=== PATIENT | male | born 1960 | race American Indian/Alaskan Native ===

== ENCOUNTER 2016-12-13 10:03 | Emergency (ER) | payer SELFPAY ==
[2016-12-13 10:08] VITALS: BP 138/89
--- NOTE | 2016-12-13 11:43 | Cat Scan Report ---
CT scan of abdomen and pelvis without IV contrast: Findings: Normal lung bases. No pleural or pericardial effusion. Normal liver spleen pancreas and gallbladder. Normal adrenals. Circumscribed hypodensity right kidney upper pole measuring 1.4 cm suggestive of cysts. No calculi. No evidence of hydronephrosis. Thick walled urinary bladder probably due to inadequate distention. Cannot exclude cystitis. No free intraperitoneal fluid or air. No evidence of adenopathy. Normal aorta. Normal appendix. No evidence of diverticulitis. Stool in colon. No bowel distention. Small umbilical hernia containing fat. Impression: No acute abdominal findings. Cysts right kidney. 2 small umbilical hernia containing fat.
--- NOTE | 2016-12-13 12:13 | Emergency Department Report ---
ED Back Pain/Injury HPI - General Chief Complaint: Back Pain/Injury Stated Complaint: BACK PAIN Time Seen by Provider: 12/13/16 10:46 Source: patient Limitations: No Limitations - History of Present Illness Initial Comments: She complaining of intermittent low back pain that sometimes radiates towards the front/groin. Patient denies nausea vomiting, abdominal pain, testicular pain, dysuria, fever or chills. She has a long history of chronic recurrent back pain. Denies any new injury MD Complaint: back pain -: Gradual - Related Data Home Medications Medication Instructions Recorded Confirmed Last Taken Ibuprofen [Motrin] 800 mg PO Q8HR PRN 08/06/15 08/06/15 Unknown Naproxen [Naprosyn TAB] 500 mg PO BID 08/06/15 08/06/15 Unknown traMADol [Ultram 50 MG tab] 50 mg PO Q6HR PRN 08/06/15 08/06/15 Unknown Previous Rx's Medication Instructions Recorded Last Taken Type Sulfamethoxazole/Trimethoprim 1 each PO BID #14 tablet 08/06/15 Unknown Rx [Bactrim DS TAB] traMADol [Ultram 50 MG tab] 50 mg PO Q4HR PRN #20 tablet 08/06/15 Unknown Rx Methocarbamol [Robaxin TAB] 750 mg PO Q8H PRN #20 tablet 12/13/16 Unknown Rx Allergies Allergy/AdvReac Type Severity Reaction Status Date / Time No Known Allergies Allergy Verified 09/20/15 17:40 ED Review of Systems ROS: Stated complaint: BACK PAIN Other details as noted in HPI Constitutional: denies: chills, fever Eyes: denies: eye pain, eye discharge, vision change ENT: denies: ear pain, throat pain Respiratory: denies: cough, shortness of breath, wheezing Cardiovascular: denies: chest pain, palpitations Endocrine: no symptoms reported Gastrointestinal: denies: abdominal pain, nausea, vomiting, diarrhea Genitourinary: denies: urgency, dysuria, testicular pain, testicular mass Musculoskeletal: back pain. denies: joint swelling, arthralgia Skin: denies: rash, lesions Neurological: denies: headache, weakness, paresthesias Psychiatric: denies: anxiety, depression Hematological/Lymphatic: denies: easy bleeding, easy bruising ED Past Medical Hx - Past Medical History Previous Medical History?: Yes Hx Hypertension: Yes Additional medical history: CHRONIC LEFT SHOULDER PAIN. CHRONIC BACK PAIN - Surgical History Past Surgical History?: Yes Additional Surgical History: left shoulder repair - Social History Smoking Status: Current Every Day Smoker Substance Use Type: Alcohol, Non Opiate Pain, Prescribed - Medications Home Medications: Home Medications Medication Instructions Recorded Confirmed Last Taken Type Ibuprofen [Motrin] 800 mg PO Q8HR PRN 08/06/15 08/06/15 Unknown History Naproxen [Naprosyn TAB] 500 mg PO BID 08/06/15 08/06/15 Unknown History Sulfamethoxazole/Trimethoprim 1 each PO BID #14 tablet 08/06/15 Unknown Rx [Bactrim DS TAB] traMADol [Ultram 50 MG tab] 50 mg PO Q4HR PRN #20 tablet 08/06/15 Unknown Rx traMADol [Ultram 50 MG tab] 50 mg PO Q6HR PRN 08/06/15 08/06/15 Unknown History Methocarbamol [Robaxin TAB] 750 mg PO Q8H PRN #20 tablet 12/13/16 Unknown Rx ED Physical Exam - General Limitations: No Limitations General appearance: alert, in no apparent distress - Head Head exam: Present: atraumatic, normocephalic - Eye Eye exam: Present: normal appearance - ENT ENT exam: Present: mucous membranes moist - Neck Neck exam: Present: normal inspection - Respiratory Respiratory exam: Present: normal lung sounds bilaterally. Absent: respiratory distress - Cardiovascular Cardiovascular Exam: Present: regular rate, normal rhythm. Absent: systolic murmur, diastolic murmur, rubs, gallop - GI/Abdominal GI/Abdominal exam: Present: soft, normal bowel sounds. Absent: distended, tenderness, guarding, rebound, rigid - Rectal Rectal exam: Present: deferred - Extremities Exam Extremities exam: Present: normal inspection - Back Exam Back exam: Present: normal inspection, full ROM, paraspinal tenderness, other ( abdomen right positive straight-leg raise at 15). Absent: CVA tenderness (R), CVA tenderness (L) - Neurological Exam Neurological exam: Present: alert, oriented X3, normal gait - Psychiatric Psychiatric exam: Present: normal affect, normal mood - Skin Skin exam: Present: warm, dry, intact, normal color. Absent: rash ED Course Vital Signs 12/13/16 10:06 Temperature 98.1 F Pulse Rate 80 Respiratory 20 Rate Blood Pressure 138/89 O2 Sat by Pulse 99 Oximetry Critical care attestation.: If time is entered above; I have spent that time in minutes in the direct care of this critically ill patient, excluding procedure time. ED Disposition Clinical Impression: Low back pain Disposition: DISCHARGED TO HOME OR SELFCARE Is pt being admited?: No Condition: Stable Instructions: Low Back Strain (ED) Prescriptions: Methocarbamol [Robaxin TAB] 750 mg PO Q8H PRN #20 tablet PRN Reason: Pain Referrals: PRIMARY CARE, [Primary Care Provider] - 3-5 Days
[2016-12-13 12:41] LABS: Bilirubin,Urine NEG (Negative); Blood,Urine NEG (Negative); Ketones,Urine NEG (Negative); Leukocyte Esterase,Urine NEG (Negative); Nitrite,Urine NEG (Negative); Protein,Urine <15 mg/dL mg/dL (Negative); Urobilinogen,Urine < 2.0 mg/dL (<2.0)
== END 2016-12-13 12:25 | disposition home or self-care (01) ==
LOC: ED 10:03
DX: M54.5 Low back pain (principal); I10 Essential (primary) hypertension; G89.29 Other chronic pain; F17.200 Nicotine dependence, unspecified, uncomplicated
CPT/HCPCS: 74176; 81001

== ENCOUNTER 2017-03-28 23:01 | Emergency (ER) | payer OTHER ==
[2017-03-29] MEDS ORDERED: NORCO 7.5/325 PO ONE (01:42)
[2017-03-29] MEDS ORDERED: MOTRIN PO ONE (01:42)
[2017-03-29] MEDS ORDERED: FLEXERIL PO ONE (01:42)
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
[2017-03-29 03:14] VITALS: BP 160/91
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
== END 2017-03-29 03:14 | disposition home or self-care (01) ==
LOC: ED 23:01
DX: M54.5 Low back pain (principal); I10 Essential (primary) hypertension; F17.200 Nicotine dependence, unspecified, uncomplicated; G89.29 Other chronic pain; V89.2XXA Person injured in unspecified motor-vehicle accident, traffic, initial encounter; Y92.488 Other paved roadways as the place of occurrence of the external cause; Y93.89 Activity, other specified; Y99.8 Other external cause status
CPT/HCPCS: 72100; 99283

== ENCOUNTER 2017-07-16 00:50 | Inpatient (IN) | payer OTHER ==
[2017-07-16 03:36] LABS: Basophils # (Auto) 0.1 K/mm3 (0.0-0.1); Basophils % (Auto) 0.5 % (0.0-1.8); Eosinophils # (Auto) 0.1 K/mm3 (0.0-0.4); Eosinophils % (Auto) 0.8 % (0.0-4.3); Hematocrit 45.6 % (35.5-45.6); Hemoglobin 15.8 gm/dl (11.8-15.2); Lymphocytes # (Auto) 3.1 K/mm3 (1.2-5.4); Mean Corpuscular HGB Conc 35 % (32-34); Mean Corpuscular Hemoglobin 32 pg (28-32); Mean Corpuscular Volume 91 fl (84-94); Monocytes # (Auto) 1.3 K/mm3 (0.0-0.8); Monocytes % (Auto) 13.3 % (0.0-7.3); Platelet Count 311 K/mm3 (140-440); Red Cell Distribution Width 13.2 % (13.2-15.2)
[2017-07-16 03:47] LABS: INR 0.96 (0.87-1.13)
[2017-07-16 03:48] LABS: Partial Thromboplastin Time 27.8 Sec. (24.2-36.6); Thrombin Time 16.3 Sec. (15.1-19.6)
[2017-07-16 04:06] LABS: BUN/Creatinine Ratio 25; Blood Urea Nitrogen 20 mg/dL (9-20); Calcium 9.3 mg/dL (8.4-10.2); Hemolysis Index 41
--- NOTE | 2017-07-16 06:27 | Cat Scan Report ---
FINAL REPORT EXAM: CT HEAD/BRAIN WO CON HISTORY: DIZZINESS TECHNIQUE: CT imaging acquired through the head without intravenous contrast. Transaxial reformations are provided. PRIORS: None. FINDINGS: The ventricles, cisterns and sulci are within normal limits. No intraparenchymal or extra-axial mass, hemorrhage, or mass effect. Schultz and white-matter differentiation is within normal limits for patient age. Normal spherical shape of the globes. No significant abnormality involving the imaged portions of the paranasal sinuses and mastoid air cells. No skull or facial fracture visualized. IMPRESSION: No acute intracranial abnormality.
[2017-07-16] MEDS ORDERED: ANTIVERT PO ONE (12:23)
--- NOTE | 2017-07-16 12:28 | Emergency Department Report ---
HPI - General Chief Complaint: Dizziness Time Seen by Provider: 07/16/17 12:11 - HPI HPI: Room 3 The patient is a 56-year-old male presents with the chief complaint of dizziness. The patient states his symptoms began one week ago when he felt as though his left ear was "stopped up." The patient is occasional cough and rhinorrhea. The patient states lately he feels as though he is still moving whenever he stands up. 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 CHRONIC BACK PAIN - Surgical History Past Surgical History?: Yes Additional Surgical History: left shoulder repair - Family History Family history: no significant - Social History Smoking Status: Former Smoker (none 1 week) Substance Use Type: None (denies illicit drug use), Alcohol (occasional) - Medications Home Medications: Home Medications Medication Instructions Recorded Confirmed Last Taken Type Ibuprofen [Motrin] 800 mg PO Q8HR PRN 08/06/15 08/06/15 Unknown History Naproxen [Naprosyn TAB] 500 mg PO BID 08/06/15 08/06/15 Unknown History Sulfamethoxazole/Trimethoprim 1 each PO BID #14 tablet 08/06/15 Unknown Rx [Bactrim DS TAB] traMADol [Ultram 50 MG tab] 50 mg PO Q4HR PRN #20 tablet 08/06/15 Unknown Rx traMADol [Ultram 50 MG tab] 50 mg PO Q6HR PRN 08/06/15 08/06/15 Unknown History Methocarbamol [Robaxin TAB] 750 mg PO Q8H PRN #20 tablet 12/13/16 Unknown Rx traMADol [Ultram 50 MG tab] 50 mg PO Q4HR PRN #20 tablet 12/13/16 Unknown Rx Meloxicam [Mobic] 7.5 mg PO QDAY #5 tablet 03/29/17 Unknown Rx methOCARBAMOL [Robaxin TAB] 500 mg PO TID #15 tab 03/29/17 Unknown Rx Meclizine [Antivert] 25 mg PO TID PRN #20 tablet 07/16/17 Unknown Rx ED Review of Systems ROS: Stated complaint: DIZZINESS Other details as noted in HPI Constitutional: denies: fever ENT: hearing loss Respiratory: cough Neurological: vertigo Physical Exam - Physical Exam Vital Signs: Vital Signs 07/16/17 07/16/17 01:34 07:56 Temperature 97.5 F L 98.8 F Pulse Rate 125 H 111 H Respiratory 17 16 Rate Blood Pressure 111/82 Blood Pressure 138/84 [Right] O2 Sat by Pulse 99 95 Oximetry Physical Exam: GENERAL: The patient is well-developed well-nourished male lying on stretcher not appearing to be in acute distress. [] HEENT: Normocephalic. Atraumatic. Extraocular motions are intact. Patient has moist mucous membranes. No nystagmus NECK: Supple. No meningitic signs are noted. Trachea midline CHEST/LUNGS: Clear to auscultation. There is no respiratory distress noted. HEART/CARDIOVASCULAR: Regular. There is no tachycardia. There is no gallop rub or murmur. ABDOMEN: Abdomen is soft, nontender. Patient has normal bowel sounds. There is no abdominal distention. SKIN: There is no rash. There is no edema. There is no diaphoresis. NEURO: The patient is awake, alert, and oriented. The patient is cooperative. The patient has no focal neurologic deficits. The patient has normal speech and gait. Cranial nerves II through XII grossly intact, no drift. Normal sensation throughout. No dysmetria noted with [id number] bilaterally. MUSCULOSKELETAL:There is no evidence of acute injury. ED Course Vital Signs 07/16/17 07/16/17 01:34 07:56 Temperature 97.5 F L 98.8 F Pulse Rate 125 H 111 H Respiratory 17 16 Rate Blood Pressure 111/82 Blood Pressure 138/84 [Right] O2 Sat by Pulse 99 95 Oximetry ED Medical Decision Making - Lab Data Result diagrams: 07/16/17 02:06 07/16/17 02:06 Laboratory Tests 07/16/17 07/16/17 07/16/17 02:06 02:06 02:06 WBC 9.4 RBC 5.00 Hgb 15.8 H Hct 45.6 MCV 91 MCH 32 MCHC 35 H RDW 13.2 Plt Count 311 Lymph % (Auto) 33.0 [place] % (Auto) 13.3 H Eos % (Auto) 0.8 Baso % (Auto) 0.5 Lymph # 3.1 [place] # 1.3 H Eos # 0.1 Baso # 0.1 Seg Neutrophils % 52.4 Seg Neutrophils # 4.9 PT 13.3 INR 0.96 APTT 27.8 Thrombin Time 16.3 Sodium 140 Potassium 4.1 Chloride 97.1 L Carbon Dioxide 22 Anion Gap 25 BUN 20 Creatinine 0.8 Estimated GFR > 60 BUN/Creatinine Ratio 25 Glucose 112 H Calcium 9.3 Troponin T < 0.010 - EKG Data -: EKG Interpreted by Me EKG shows normal: sinus rhythm Rate: normal - EKG Data When compared to previous EKG there are: no significant change Interpretation: unchanged when compared t (08/06/2015) - Radiology Data Radiology results: report reviewed (CT head), image reviewed (CT head) FINAL REPORT EXAM: CT HEAD/BRAIN WO CON HISTORY: DIZZINESS TECHNIQUE: CT imaging acquired through the head without intravenous contrast. Transaxial reformations are provided. PRIORS: None. FINDINGS: The ventricles, cisterns and sulci are within normal limits. No intraparenchymal or extra-axial mass, hemorrhage, or mass effect. Schultz and white-matter differentiation is within normal limits for patient age. Normal spherical shape of the globes. No significant abnormality involving the imaged portions of the paranasal sinuses and mastoid air cells. No skull or facial fracture visualized. IMPRESSION: No acute intracranial abnormality. Transcribed By: MB Dictated By: LINA ABDI MD Electronically Authenticated By: LINA ABDI MD Signed Date/Time: 07/16/17223 DD/ 3 TD/TT: 07/16/17223 - Medical Decision Making Patient persistently tachycardic and dizzy despite 2 L of IV fluids. Will admit the patient to the hospital for further management - Differential Diagnosis vertigo, symptomatic anemia, electrolyte imbalance, dehydration Critical care attestation.: If time is entered above; I have spent that time in minutes in the direct care of this critically ill patient, excluding procedure time. ED Disposition Clinical Impression: Dizziness, Orthostasis Disposition: OP ADMIT IP TO THIS HOSP Is pt being admited?: Yes Does the pt Need Aspirin: Yes Condition: Fair Instructions: Vertigo (ED) Additional Instructions: Return to the emergency department immediately should you develop worsening symptoms, fever, inability to tolerate food or liquid or any other concerns. Prescriptions: Meclizine [Antivert] 25 mg PO TID PRN #20 tablet PRN Reason: Vertigo Referrals: DURAN HORNER MD [Staff Physician] - 3-5 Days LINA BURNS MD [Primary Care Provider] - 3-5 Days (Dr. Prasad is a primary physician. Please follow-up with him to be established as a patient) JENNIFER IVERSON MD [Staff Physician] - 3-5 Days (Dr. Otilio Henley is an ear nose and throat doctor (orthodontic laboratory technician). Please follow up with her for further evaluation) Time of Disposition: 15:42 (hospitalist paged (Dr Bonner))
[2017-07-16] MEDS ORDERED: NACL 0.9% 1000 ML 1,000 ML IV ONE ×3 (12:53→23:02)
[2017-07-16] MEDS ORDERED: ASPIRIN PO ONE (15:43)
--- NOTE | 2017-07-16 21:18 | Event Note ---
Date: 07/16/17 See dictated H/p in reports
[2017-07-16] MEDS ORDERED: D5NS 1,000 ML IV SCH (22:00)
--- NOTE | 2017-07-16 22:55 | History and Physical Report ---
History of Present Illness Date of examination: 07/16/17 Date of admission: Dizziness History of present illness: The patient is a 56-year-old male presents with the chief complaint of dizziness. The patient states his symptoms began one week ago when he felt as though his left ear was "stopped up." The patient is occasional cough and rhinorrhea. The patient states lately he feels as though he is still moving whenever he stands up. 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 CHRONIC BACK PAIN) Past Surgical History: Other (left shoulder repair) Social history: smoking, full code. denies: alcohol abuse, IV drug use Family history: no significant family history Medications and Allergies Allergies Allergy/AdvReac Type Severity Reaction Status Date / Time No Known Allergies Allergy Verified 09/20/15 17:40 Home Medications Medication Instructions Recorded Confirmed Last Taken Type HYDROcodone/APAP 5-325 [[place] 1 each PO BID PRN 07/16/17 07/16/17 07/14/17 History 5/325] Active Meds: Active Medications Acetaminophen/Hydrocodone Bitart ([place] 5/325) 1 each PO BID PRN PRN Reason: Pain Dextrose/Sodium Chloride (D5ns) 1,000 mls @ 100 mls/hr IV DIRECT ZENA Review of Systems All systems: negative Exam - Physical Exam Narrative exam: GENERAL: The patient is well-developed well-nourished male lying on stretcher not appearing to be in acute distress. [] HEENT: Normocephalic. Atraumatic. Extraocular motions are intact. Patient has moist mucous membranes. No nystagmus NECK: Supple. No meningitic signs are noted. Trachea midline CHEST/LUNGS: Clear to auscultation. There is no respiratory distress noted. HEART/CARDIOVASCULAR: Regular. There is no tachycardia. There is no gallop rub or murmur. ABDOMEN: Abdomen is soft, nontender. Patient has normal bowel sounds. There is no abdominal distention. SKIN: There is no rash. There is no edema. There is no diaphoresis. NEURO: The patient is awake, alert, and oriented. The patient is cooperative. The patient has no focal neurologic deficits. The patient has normal speech and gait. Cranial nerves II through XII grossly intact, no drift. Normal sensation throughout. No dysmetria noted with [id number] bilaterally. MUSCULOSKELETAL:There is no evidence of acute injury. - Constitutional Vitals: Temp Pulse Resp BP Pulse Ox 98.7 F 90 16 113/72 95 07/16/17 19:30 07/16/17 22:17 07/16/17 22:17 07/16/17 22:17 07/16/17 22:17 Results - Labs CBC & Chem 7: 07/16/17 02:06 07/16/17 02:06 Labs: Laboratory Last Values WBC 9.4 K/mm3 (4.5-11.0) 07/16/17 02:06 RBC 5.00 M/mm3 (3.65-5.03) 07/16/17 02:06 Hgb 15.8 gm/dl (11.8-15.2) H 07/16/17 02:06 Hct 45.6 % (35.5-45.6) 07/16/17 02:06 MCV 91 fl (84-94) 07/16/17 02:06 MCH 32 pg (28-32) 07/16/17 02:06 MCHC 35 % (32-34) H 07/16/17 02:06 RDW 13.2 % (13.2-15.2) 07/16/17 02:06 Plt Count 311 K/mm3 (140-440) 07/16/17 02:06 Lymph % (Auto) 33.0 % (13.4-35.0) 07/16/17 02:06 [place] % (Auto) 13.3 % (0.0-7.3) H 07/16/17 02:06 Eos % (Auto) 0.8 % (0.0-4.3) 07/16/17 02:06 Baso % (Auto) 0.5 % (0.0-1.8) 07/16/17 02:06 Lymph # 3.1 K/mm3 (1.2-5.4) 07/16/17 02:06 [place] # 1.3 K/mm3 (0.0-0.8) H 07/16/17 02:06 Eos # 0.1 K/mm3 (0.0-0.4) 07/16/17 02:06 Baso # 0.1 K/mm3 (0.0-0.1) 07/16/17 02:06 Seg Neutrophils % 52.4 % (40.0-70.0) 07/16/17 02:06 Seg Neutrophils # 4.9 K/mm3 (1.8-7.7) 07/16/17 02:06 PT 13.3 Sec. (12.2-14.9) 07/16/17 02:06 INR 0.96 (0.87-1.13) 07/16/17 02:06 APTT 27.8 Sec. (24.2-36.6) 07/16/17 02:06 Thrombin Time 16.3 Sec. (15.1-19.6) 07/16/17 02:06 Sodium 140 mmol/L (137-145) 07/16/17 02:06 Potassium 4.1 mmol/L (3.6-5.0) 07/16/17 02:06 Chloride 97.1 mmol/L (98-107) L 07/16/17 02:06 Carbon Dioxide 22 mmol/L (22-30) 07/16/17 02:06 Anion Gap 25 mmol/L 07/16/17 02:06 BUN 20 mg/dL (9-20) 07/16/17 02:06 Creatinine 0.8 mg/dL (0.8-1.5) 07/16/17 02:06 Estimated GFR > 60 ml/min 07/16/17 02:06 BUN/Creatinine Ratio 25 % 07/16/17 02:06 Glucose 112 mg/dL (75-100) H 07/16/17 02:06 Calcium 9.3 mg/dL (8.4-10.2) 07/16/17 02:06 Troponin T < 0.010 ng/mL (0.00-0.029) 07/16/17 02:06 - Imaging and Cardiology Imaging and Cardiology: EKG shows normal: sinus rhythm Rate: normal - CT HEAD/BRAIN WO CON FINDINGS: The ventricles, cisterns and sulci are within normal limits. No intraparenchymal or extra-axial mass, hemorrhage, or mass effect. Schultz and white-matter differentiation is within normal limits for patient age. Normal spherical shape of the globes. No significant abnormality involving the imaged portions of the paranasal sinuses and mastoid air cells. No skull or facial fracture visualized. IMPRESSION: No acute intracranial abnormality. Assessment and Plan Assessment and plan: Assessment and plan - * Dizziness - likely due to BPV versus labyrinthitis. * Possibly TIA versus CVA * Benign positional vertigo * Orthostatic vital signs - increase in heart rate but blood pressure normal * Chronic pain Plan - Admit for 24-hour observation on medical floor with telemetry MRI brain without contrast Carotid ultrasound Echocardiogram Treat symptomatically with meclizine when necessary and start the patient on low -dose prednisone Continue home medications IV fluids Monitor CBC and electrolytes replace electrolytes when necessary as per protocol DVT GI prophylaxis as ordered monitor and follow the patient closely VTE prophylaxis?: Chemical, Mechanical Plan of care discussed with patient/family: Yes
[2017-07-16] MEDS ORDERED: PERCOCET 5/325 PO PRN (22:56)
[2017-07-16] MEDS ORDERED: TYLENOL PO PRN (22:56)
[2017-07-16] MEDS ORDERED: DULCOLAX PR PRN (22:56)
[2017-07-16] MEDS ORDERED: ZOFRAN IV PRN (22:56)
[2017-07-16] MEDS ORDERED: MILK OF MAGNESIA PO PRN (22:56)
[2017-07-16] MEDS ORDERED: PROVENTIL IH PRN (22:56)
[2017-07-16] MEDS ORDERED: ANTIVERT PO PRN (23:01)
[2017-07-17] MEDS: NACL 0.9% 1000 ML 1,000 ML IV SCH ×2 (00:46→19:50)
[2017-07-17 05:51] LABS: Basophils % (Auto) 0.3 % (0.0-1.8); Eosinophils # (Auto) 0.1 K/mm3 (0.0-0.4); Eosinophils % (Auto) 1.4 % (0.0-4.3); Hematocrit 36.5 % (35.5-45.6); Lymphocytes # (Auto) 3.2 K/mm3 (1.2-5.4); Lymphocytes % (Auto) 33.8 % (13.4-35.0); Mean Corpuscular HGB Conc 33 % (32-34); Mean Corpuscular Hemoglobin 30 pg (28-32); Mean Corpuscular Volume 92 fl (84-94); Monocytes # (Auto) 1.3 K/mm3 (0.0-0.8); Monocytes % (Auto) 13.4 % (0.0-7.3); Platelet Count 322 K/mm3 (140-440); Red Blood Count 3.97 M/mm3 (3.65-5.03); Red Cell Distribution Width 13.3 % (13.2-15.2)
[2017-07-17 06:21] LABS: Alanine Aminotransferase 28 units/L (7-56); Albumin 2.9 g/dL (3.9-5); BUN/Creatinine Ratio 23; Blood Urea Nitrogen 16 mg/dL (9-20); Hemolysis Index 9
[2017-07-17] MEDS: DELTASONE PO SCH (09:02)
[2017-07-17] MEDS: SENOKOT PO SCH ×2 (09:02→22:46)
[2017-07-17] MEDS: NORCO 5/325 PO PRN ×2 (09:02→18:53)
[2017-07-17] MEDS: PEPCID PO SCH ×2 (09:02→22:46)
[2017-07-17] MEDS: COLACE PO SCH ×2 (09:02→22:46)
[2017-07-17] MEDS: LOVENOX SUB-Q SCH (09:03)
--- NOTE | 2017-07-17 10:55 | Progress Note ---
Assessment and Plan Assessment and plan: BPV. Continue meclizine daily. Labyrinthitis. Hypertension. Continue to monitor blood pressure. Resume antihypertensive medications as needed. History Interval history: No new issues overnight. Patient still complains of dizziness Hospitalist Physical - Constitutional Vitals: Temp Pulse Resp BP Pulse Ox 98.4 F 83 20 113/62 98 07/17/17 07:34 07/17/17 07:34 07/17/17 07:34 07/17/17 07:34 07/17/17 09:34 General appearance: Present: no acute distress, well-nourished - EENT Eyes: Present: PERRL, EOM intact ENT: hearing intact, clear oral mucosa, dentition normal - Neck Neck: Present: supple, normal ROM - Respiratory Respiratory effort: normal Respiratory: bilateral: CTA - Cardiovascular Rhythm: regular Heart Sounds: Present: S1 & S2. Absent: gallop, rub - Extremities Extremities: no ischemia, No edema, Full ROM - Abdominal General gastrointestinal: soft, non-tender, non-distended, normal bowel sounds - Integumentary Integumentary: Present: clear, warm, dry - Neurologic Neurologic: CNII-XII intact, moves all extremities Results - Labs CBC & Chem 7: 07/17/17 04:39 07/17/17 04:39 Labs: Laboratory Last Values WBC 9.5 K/mm3 (4.5-11.0) 07/17/17 04:39 RBC 3.97 M/mm3 (3.65-5.03) 07/17/17 04:39 Hgb 12.0 gm/dl (11.8-15.2) D 07/17/17 04:39 Hct 36.5 % (35.5-45.6) D 07/17/17 04:39 MCV 92 fl (84-94) 07/17/17 04:39 MCH 30 pg (28-32) 07/17/17 04:39 MCHC 33 % (32-34) 07/17/17 04:39 RDW 13.3 % (13.2-15.2) 07/17/17 04:39 Plt Count 322 K/mm3 (140-440) 07/17/17 04:39 Lymph % (Auto) 33.8 % (13.4-35.0) 07/17/17 04:39 [place] % (Auto) 13.4 % (0.0-7.3) H 07/17/17 04:39 Eos % (Auto) 1.4 % (0.0-4.3) 07/17/17 04:39 Baso % (Auto) 0.3 % (0.0-1.8) 07/17/17 04:39 Lymph # 3.2 K/mm3 (1.2-5.4) 07/17/17 04:39 [place] # 1.3 K/mm3 (0.0-0.8) H 07/17/17 04:39 Eos # 0.1 K/mm3 (0.0-0.4) 07/17/17 04:39 Baso # 0.0 K/mm3 (0.0-0.1) 07/17/17 04:39 Seg Neutrophils % 51.1 % (40.0-70.0) 07/17/17 04:39 Seg Neutrophils # 4.9 K/mm3 (1.8-7.7) 07/17/17 04:39 PT 13.3 Sec. (12.2-14.9) 07/16/17 02:06 INR 0.96 (0.87-1.13) 07/16/17 02:06 APTT 27.8 Sec. (24.2-36.6) 07/16/17 02:06 Thrombin Time 16.3 Sec. (15.1-19.6) 07/16/17 02:06 Sodium 140 mmol/L (137-145) 07/17/17 04:39 Potassium 4.2 mmol/L (3.6-5.0) 07/17/17 04:39 Chloride 104.3 mmol/L (98-107) 07/17/17 04:39 Carbon Dioxide 24 mmol/L (22-30) 07/17/17 04:39 Anion Gap 16 mmol/L 07/17/17 04:39 BUN 16 mg/dL (9-20) 07/17/17 04:39 Creatinine 0.7 mg/dL (0.8-1.5) L 07/17/17 04:39 Estimated GFR > 60 ml/min 07/17/17 04:39 BUN/Creatinine Ratio 23 % 07/17/17 04:39 Glucose 98 mg/dL (75-100) 07/17/17 04:39 Hemoglobin A1c 5.6 % (4-6) 07/16/17 23:15 Calcium 8.0 mg/dL (8.4-10.2) L 07/17/17 04:39 Phosphorus 2.30 mg/dL (2.5-4.5) L 07/17/17 04:39 Magnesium 2.20 mg/dL (1.7-2.3) 07/17/17 04:39 Total Bilirubin 0.50 mg/dL (0.1-1.2) 07/17/17 04:39 AST 30 units/L (5-40) 07/17/17 04:39 ALT 28 units/L (7-56) 07/17/17 04:39 Alkaline Phosphatase 63 units/L (35-129) 07/17/17 04:39 Troponin T < 0.010 ng/mL (0.00-0.029) 07/16/17 02:06 Total Protein 5.9 g/dL (6.3-8.2) L 07/17/17 04:39 Albumin 2.9 g/dL (3.9-5) L 07/17/17 04:39 Albumin/Globulin Ratio 1.0 % 07/17/17 04:39 Triglycerides 141 mg/dL (2-149) 07/16/17 23:15 Cholesterol 132 mg/dL (50-199) 07/16/17 23:15 LDL Cholesterol Direct 82 mg/dL (50-130) 07/16/17 23:15 HDL Cholesterol 22 mg/dL (40-59) L 07/16/17 23:15 Cholesterol/HDL Ratio 6.00 % 07/16/17 23:15
[2017-07-17] MEDS ORDERED: Fluarix Quad 2017-2018(36 MOS+ IM ONE (12:01)
--- NOTE | 2017-07-18 09:16 | Progress Note ---
Assessment and Plan Assessment and plan: BPV. Continue meclizine daily. PT eval Labyrinthitis. Hypertension. Continue to monitor blood pressure. Resume antihypertensive medications as needed. History Interval history: No new issues overnight. Patient still complains of dizziness Hospitalist Physical - Constitutional Vitals: Temp Pulse Resp BP Pulse Ox 98.8 F 87 16 110/64 100 07/18/17 07:23 07/18/17 07:23 07/18/17 07:23 07/18/17 07:23 07/18/17 07:23 General appearance: Present: no acute distress, well-nourished - EENT Eyes: Present: PERRL, EOM intact ENT: hearing intact, clear oral mucosa, dentition normal - Neck Neck: Present: supple, normal ROM - Respiratory Respiratory effort: normal Respiratory: bilateral: CTA - Cardiovascular Rhythm: regular Heart Sounds: Present: S1 & S2. Absent: gallop, rub - Extremities Extremities: no ischemia, No edema, Full ROM - Abdominal General gastrointestinal: soft, non-tender, non-distended, normal bowel sounds - Integumentary Integumentary: Present: clear, warm, dry - Neurologic Neurologic: CNII-XII intact, moves all extremities Results - Labs CBC & Chem 7: 07/17/17 04:39 07/17/17 04:39 Labs: Laboratory Last Values WBC 9.5 K/mm3 (4.5-11.0) 07/17/17 04:39 RBC 3.97 M/mm3 (3.65-5.03) 07/17/17 04:39 Hgb 12.0 gm/dl (11.8-15.2) D 07/17/17 04:39 Hct 36.5 % (35.5-45.6) D 07/17/17 04:39 MCV 92 fl (84-94) 07/17/17 04:39 MCH 30 pg (28-32) 07/17/17 04:39 MCHC 33 % (32-34) 07/17/17 04:39 RDW 13.3 % (13.2-15.2) 07/17/17 04:39 Plt Count 322 K/mm3 (140-440) 07/17/17 04:39 Lymph % (Auto) 33.8 % (13.4-35.0) 07/17/17 04:39 [place] % (Auto) 13.4 % (0.0-7.3) H 07/17/17 04:39 Eos % (Auto) 1.4 % (0.0-4.3) 07/17/17 04:39 Baso % (Auto) 0.3 % (0.0-1.8) 07/17/17 04:39 Lymph # 3.2 K/mm3 (1.2-5.4) 07/17/17 04:39 [place] # 1.3 K/mm3 (0.0-0.8) H 07/17/17 04:39 Eos # 0.1 K/mm3 (0.0-0.4) 07/17/17 04:39 Baso # 0.0 K/mm3 (0.0-0.1) 07/17/17 04:39 Seg Neutrophils % 51.1 % (40.0-70.0) 07/17/17 04:39 Seg Neutrophils # 4.9 K/mm3 (1.8-7.7) 07/17/17 04:39 PT 13.3 Sec. (12.2-14.9) 07/16/17 02:06 INR 0.96 (0.87-1.13) 07/16/17 02:06 APTT 27.8 Sec. (24.2-36.6) 07/16/17 02:06 Thrombin Time 16.3 Sec. (15.1-19.6) 07/16/17 02:06 Sodium 140 mmol/L (137-145) 07/17/17 04:39 Potassium 4.2 mmol/L (3.6-5.0) 07/17/17 04:39 Chloride 104.3 mmol/L (98-107) 07/17/17 04:39 Carbon Dioxide 24 mmol/L (22-30) 07/17/17 04:39 Anion Gap 16 mmol/L 07/17/17 04:39 BUN 16 mg/dL (9-20) 07/17/17 04:39 Creatinine 0.7 mg/dL (0.8-1.5) L 07/17/17 04:39 Estimated GFR > 60 ml/min 07/17/17 04:39 BUN/Creatinine Ratio 23 % 07/17/17 04:39 Glucose 98 mg/dL (75-100) 07/17/17 04:39 Hemoglobin A1c 5.6 % (4-6) 07/16/17 23:15 Calcium 8.0 mg/dL (8.4-10.2) L 07/17/17 04:39 Phosphorus 2.30 mg/dL (2.5-4.5) L 07/17/17 04:39 Magnesium 2.20 mg/dL (1.7-2.3) 07/17/17 04:39 Total Bilirubin 0.50 mg/dL (0.1-1.2) 07/17/17 04:39 AST 30 units/L (5-40) 07/17/17 04:39 ALT 28 units/L (7-56) 07/17/17 04:39 Alkaline Phosphatase 63 units/L (35-129) 07/17/17 04:39 Troponin T < 0.010 ng/mL (0.00-0.029) 07/16/17 02:06 Total Protein 5.9 g/dL (6.3-8.2) L 07/17/17 04:39 Albumin 2.9 g/dL (3.9-5) L 07/17/17 04:39 Albumin/Globulin Ratio 1.0 % 07/17/17 04:39 Triglycerides 141 mg/dL (2-149) 07/16/17 23:15 Cholesterol 132 mg/dL (50-199) 07/16/17 23:15 LDL Cholesterol Direct 82 mg/dL (50-130) 07/16/17 23:15 HDL Cholesterol 22 mg/dL (40-59) L 07/16/17 23:15 Cholesterol/HDL Ratio 6.00 % 07/16/17 23:15
[2017-07-18] MEDS: NACL 0.9% 1000 ML 1,000 ML IV SCH (11:03)
[2017-07-18] MEDS: COLACE PO SCH ×2 (11:03→22:21)
[2017-07-18] MEDS: LOVENOX SUB-Q SCH (11:04)
[2017-07-18] MEDS: DELTASONE PO SCH (11:04)
[2017-07-18] MEDS: SENOKOT PO SCH ×2 (11:04→22:21)
[2017-07-18] MEDS: PEPCID PO SCH ×2 (11:04→22:21)
[2017-07-19] MEDS: SENOKOT PO SCH ×2 (10:50→22:34)
[2017-07-19] MEDS: LOVENOX SUB-Q SCH (10:50)
[2017-07-19] MEDS: COLACE PO SCH ×2 (10:51→22:34)
[2017-07-19] MEDS: DELTASONE PO SCH (10:51)
[2017-07-19] MEDS: PEPCID PO SCH ×2 (10:51→22:34)
[2017-07-19] MEDS: NACL 0.9% 1000 ML 1,000 ML IV SCH (17:06)
--- NOTE | 2017-07-19 19:05 | Progress Note ---
Assessment and Plan Assessment and plan: Dizziness. This is still present even though mild improvement. CT Head neg. Will obtain MRI Brain. Continue meclizine daily. PT eval Hypertension. Continue to monitor blood pressure. Resume antihypertensive medications as needed. DVT prophylaxis with Lovenox. Full code status History Interval history: Dizziness slight improvement No chest pain Hospitalist Physical - Physical exam Narrative exam: GEN APPEARANCE : Not in acute distress, lying in bed,obese HEENT: Normocephalic, Atraumatic NECK : supple, no JVD LUNGS: Clear to auscultation bilaterally, no rales, no wheeze HEART: S1 and S2 regular, no murmurs, rubs or gallop ABD: Soft, non tender, non distended, normal bowel sounds EXT: No edema, no clubbing, no cyanosis, no cyanosis NEURO: Awake,alert, oriented x 3, no focal signs - Constitutional Vitals: Temp Pulse Resp BP Pulse Ox 98.7 F 96 H 20 117/77 92 07/19/17 16:21 07/19/17 16:21 07/19/17 16:21 07/19/17 16:21 07/19/17 16:21 Results - Labs CBC & Chem 7: 07/17/17 04:39 07/17/17 04:39 Labs: Laboratory Last Values WBC 9.5 K/mm3 (4.5-11.0) 07/17/17 04:39 RBC 3.97 M/mm3 (3.65-5.03) 07/17/17 04:39 Hgb 12.0 gm/dl (11.8-15.2) D 07/17/17 04:39 Hct 36.5 % (35.5-45.6) D 07/17/17 04:39 MCV 92 fl (84-94) 07/17/17 04:39 MCH 30 pg (28-32) 07/17/17 04:39 MCHC 33 % (32-34) 07/17/17 04:39 RDW 13.3 % (13.2-15.2) 07/17/17 04:39 Plt Count 322 K/mm3 (140-440) 07/17/17 04:39 Lymph % (Auto) 33.8 % (13.4-35.0) 07/17/17 04:39 [place] % (Auto) 13.4 % (0.0-7.3) H 07/17/17 04:39 Eos % (Auto) 1.4 % (0.0-4.3) 07/17/17 04:39 Baso % (Auto) 0.3 % (0.0-1.8) 07/17/17 04:39 Lymph # 3.2 K/mm3 (1.2-5.4) 07/17/17 04:39 [place] # 1.3 K/mm3 (0.0-0.8) H 07/17/17 04:39 Eos # 0.1 K/mm3 (0.0-0.4) 07/17/17 04:39 Baso # 0.0 K/mm3 (0.0-0.1) 07/17/17 04:39 Seg Neutrophils % 51.1 % (40.0-70.0) 07/17/17 04:39 Seg Neutrophils # 4.9 K/mm3 (1.8-7.7) 07/17/17 04:39 PT 13.3 Sec. (12.2-14.9) 07/16/17 02:06 INR 0.96 (0.87-1.13) 07/16/17 02:06 APTT 27.8 Sec. (24.2-36.6) 07/16/17 02:06 Thrombin Time 16.3 Sec. (15.1-19.6) 07/16/17 02:06 Sodium 140 mmol/L (137-145) 07/17/17 04:39 Potassium 4.2 mmol/L (3.6-5.0) 07/17/17 04:39 Chloride 104.3 mmol/L (98-107) 07/17/17 04:39 Carbon Dioxide 24 mmol/L (22-30) 07/17/17 04:39 Anion Gap 16 mmol/L 07/17/17 04:39 BUN 16 mg/dL (9-20) 07/17/17 04:39 Creatinine 0.7 mg/dL (0.8-1.5) L 07/17/17 04:39 Estimated GFR > 60 ml/min 07/17/17 04:39 BUN/Creatinine Ratio 23 % 07/17/17 04:39 Glucose 98 mg/dL (75-100) 07/17/17 04:39 Hemoglobin A1c 5.6 % (4-6) 07/16/17 23:15 Calcium 8.0 mg/dL (8.4-10.2) L 07/17/17 04:39 Phosphorus 2.30 mg/dL (2.5-4.5) L 07/17/17 04:39 Magnesium 2.20 mg/dL (1.7-2.3) 07/17/17 04:39 Total Bilirubin 0.50 mg/dL (0.1-1.2) 07/17/17 04:39 AST 30 units/L (5-40) 07/17/17 04:39 ALT 28 units/L (7-56) 07/17/17 04:39 Alkaline Phosphatase 63 units/L (35-129) 07/17/17 04:39 Troponin T < 0.010 ng/mL (0.00-0.029) 07/16/17 02:06 Total Protein 5.9 g/dL (6.3-8.2) L 07/17/17 04:39 Albumin 2.9 g/dL (3.9-5) L 07/17/17 04:39 Albumin/Globulin Ratio 1.0 % 07/17/17 04:39 Triglycerides 141 mg/dL (2-149) 07/16/17 23:15 Cholesterol 132 mg/dL (50-199) 07/16/17 23:15 LDL Cholesterol Direct 82 mg/dL (50-130) 07/16/17 23:15 HDL Cholesterol 22 mg/dL (40-59) L 07/16/17 23:15 Cholesterol/HDL Ratio 6.00 % 07/16/17 23:15
[2017-07-19] MEDS: NORCO 5/325 PO PRN (22:34)
[2017-07-20] MEDS ORDERED: KPHOS 30 MMOL in NACL 0.9% 500 ML 500 ML IV ONE (08:00)
[2017-07-20] MEDS: LOVENOX SUB-Q SCH (10:00)
[2017-07-20] MEDS: DELTASONE PO SCH (10:00)
[2017-07-20] MEDS: PEPCID PO SCH (10:00)
[2017-07-20] MEDS: COLACE PO SCH (10:00)
[2017-07-20] MEDS: SENOKOT PO SCH (10:00)
--- NOTE | 2017-07-20 11:41 | Magnetic Resonance Report ---
MRI OF THE BRAIN WITHOUT CONTRAST: HISTORY: Dizziness, syncope PROCEDURE: Multiplanar, multisequence MR imaging of the brain without IV contrast was performed. FINDINGS: The brain parenchyma signal intensity and its shaw white interface are within normal limits on all sequences. No evidence for acute ischemia, hemorrhage or mass. No chronic infarct or extra-axial fluid collection. The midline structures are central. The basal cisterns are patent. Normal ventricular size. The orbital cavities and sella turcica demonstrate no abnormality. The visualized paranasal sinuses and mastoid air cells are well aerated. IMPRESSION: Unremarkable non-enhanced MRI of the brain.
--- NOTE | 2017-07-20 13:07 | Discharge Summary ---
Providers - Providers Date of Admission: 07/16/17 15:52 Date of discharge: 07/20/17 Attending physician: LINA MARTINEZ 07/17/17 10:55 Physical Therapy Evaluation and Treat [CONS] Routine Comment: Reason For Exam: BPV Primary care physician: LINA BURNS Hospitalization Condition: Fair Disposition: DC-01 TO HOME OR SELFCARE Exam - Constitutional Vitals: Temp Pulse Resp BP Pulse Ox 98.1 F 78 18 133/81 92 07/20/17 08:15 07/20/17 08:15 07/20/17 08:15 07/20/17 08:17 07/20/17 08:15 Plan Activity: advance as tolerated, fall precautions Diet: low fat, low cholesterol, low salt Special Instructions: physical therapy Durable Medical Equipment Needed Upon Discharge: Walker-Rolling Additional Instructions: 1.Follow up with PCP in 3-5 days. 2.Follow up with Dr. Carpenter, ENT in 3-5 days. 3.Follow up with Dr. Mesa, Neurology in 3- 5 days. 4.Outpatient PT Follow up with: JENNIFER CARPENTER MD [Staff Physician] - 3-5 Days (Dr. Otilio Henley is an ear nose and throat doctor (manager pipeline). Please follow up with her for further evaluation) LINA BURNS MD [Primary Care Provider] - 3-5 Days (Dr. Prasad is a primary physician. Please follow-up with him to be established as a patient) DURAN HORNER MD [Staff Physician] - 3-5 Days Prescriptions: Meclizine [Antivert] 25 mg PO Q8H PRN #30 tablet PRN Reason: dizziness
[2017-07-20 19:58] VITALS: BP 136/83
== END 2017-07-20 20:11 | disposition home or self-care (01) | DRG 149 ==
LOC: ED 00:50 → 4A 15:52 → 3A 07-17 02:23
PROVIDERS: ADMIT Internal Medicine; ATTEND Internal Medicine
PROC: 3E0234Z Introduction of Serum, Toxoid and Vaccine into Muscle, Percutaneous Approach (ICD-10-PCS; principal; 2017-07-17)
DX: H81.12 Benign paroxysmal vertigo, left ear (principal); G89.29 Other chronic pain; M54.9 Dorsalgia, unspecified; M25.512 Pain in left shoulder; R00.0 Tachycardia, unspecified; I10 Essential (primary) hypertension; H83.09 Labyrinthitis, unspecified ear; F17.200 Nicotine dependence, unspecified, uncomplicated; Z79.899 Other long term (current) drug therapy; Z23 Encounter for immunization
CPT/HCPCS: 36415; 70450; 70551; 80048; 80053; 80061; 83036; 83735; 84100; 84484; 85025; 85610; 85670; 85730; 90686; 93005; 93010; 96360; 99285; J1650; J7030; J7040; J7042; J7512

== ENCOUNTER 2018-01-19 13:42 | Emergency (ER) | payer SELFPAY ==
[2018-01-19 13:48] VITALS: BP 147/84
[2018-01-19] MEDS ORDERED: DELTASONE PO ONE (14:14)
[2018-01-19] MEDS ORDERED: TORADOL IM ONE (14:14)
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
== END 2018-01-19 15:05 | disposition home or self-care (01) ==
LOC: ED 13:42
DX: S39.012A Strain of muscle, fascia and tendon of lower back, initial encounter (principal); F17.200 Nicotine dependence, unspecified, uncomplicated; I10 Essential (primary) hypertension; M25.512 Pain in left shoulder; G89.29 Other chronic pain; X58.XXXA Exposure to other specified factors, initial encounter; Y93.89 Activity, other specified; Y99.8 Other external cause status; Y92.89 Other specified places as the place of occurrence of the external cause
CPT/HCPCS: 96372; 99282; J1885; J7512

== ENCOUNTER 2018-04-06 13:08 | Emergency (ER) | payer SELFPAY ==
[2018-04-06 13:29] VITALS: BP 133/95
[2018-04-06] MEDS ORDERED: TORADOL IM ONE (19:38)
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
== END 2018-04-06 20:46 | disposition home or self-care (01) ==
LOC: ED 13:08
DX: M79.1 Myalgia (principal); I10 Essential (primary) hypertension; G89.29 Other chronic pain; F17.200 Nicotine dependence, unspecified, uncomplicated
CPT/HCPCS: 96372; 99282; J1885

== ENCOUNTER 2018-07-16 22:09 | Emergency (ER) | payer SELFPAY ==
--- NOTE | 2018-07-17 06:06 | Emergency Department Report ---
ED Back Pain/Injury HPI - General Chief Complaint: Back Pain/Injury Stated Complaint: LOWER BACK PAIN, L SIDE HURTS Source: patient Limitations: No Limitations - History of Present Illness Initial Comments: D5 0 -[place] male comes in for lower back pain that has been gone on since 2003. Patient states he went to [facility] on 06/12/2018 and was given a prescription for gabapentin 300 mg 3 times a day. Patient also reports that he has facial pain where he had a mass removed from this site in 2014. Patient reports that he's been taking Tylenol 500 mg 2 tablets a day. Patient reports that his last dose of Tylenol was yesterday at 3 AM. Patient reports that he is followed by [facility] and his next appointment is 08/10/2017. Patient currently smokes cigarettes on a daily basis. Patient has a history of arthritis and hypertension. Patient denies any recent falls. MD Complaint: back pain -: year(s) (14 for back pain . Years for removal of mass from the site where he complains of pain) Similar Symptoms Previously: Yes - Related Data Previous Rx's Medication Instructions Recorded Last Taken Type Meclizine [Antivert] 25 mg PO Q8H PRN #30 tablet 07/20/17 Unknown Rx Cyclobenzaprine [Flexeril] 10 mg PO BID PRN #14 tablet 01/19/18 Unknown Rx Ibuprofen [Motrin] 600 mg PO Q8H PRN #30 tablet 01/19/18 Unknown Rx Prednisone [predniSONE 10 mg 10 mg PO .TAPER #1 tab.ds.pk 01/19/18 Unknown Rx (6-Day Pack, 21 Tabs)] Methocarbamol [Robaxin-750] 750 mg PO Q12H PRN #12 tablet 04/06/18 Unknown Rx Tramadol HCl [Ultram] 50 mg PO Q6H PRN #12 tablet 07/17/18 Unknown Rx Allergies Allergy/AdvReac Type Severity Reaction Status Date / Time No Known Allergies Allergy Verified 01/19/18 13:48 ED Review of Systems ROS: Stated complaint: LOWER BACK PAIN, L SIDE HURTS Other details as noted in HPI Comment: All other systems reviewed and negative Musculoskeletal: back pain (14 years of back pain) ED Past Medical Hx - Past Medical History Hx Hypertension: Yes Hx Arthritis: Yes Additional medical history: CHRONIC LEFT SHOULDER PAIN. CHRONIC BACK PAIN - Surgical History Past Surgical History?: Yes Additional Surgical History: left shoulder repair - Social History Smoking Status: Current Every Day Smoker Substance Use Type: Alcohol - Medications Home Medications: Home Medications Medication Instructions Recorded Confirmed Last Taken Type Meclizine [Antivert] 25 mg PO Q8H PRN #30 tablet 07/20/17 Unknown Rx Cyclobenzaprine [Flexeril] 10 mg PO BID PRN #14 tablet 01/19/18 Unknown Rx Ibuprofen [Motrin] 600 mg PO Q8H PRN #30 tablet 01/19/18 Unknown Rx Prednisone [predniSONE 10 mg 10 mg PO .TAPER #1 tab.ds.pk 01/19/18 Unknown Rx (6-Day Pack, 21 Tabs)] Methocarbamol [Robaxin-750] 750 mg PO Q12H PRN #12 tablet 04/06/18 Unknown Rx Tramadol HCl [Ultram] 50 mg PO Q6H PRN #12 tablet 07/17/18 Unknown Rx ED Physical Exam - General Limitations: No Limitations General appearance: alert - Head Head exam: Present: atraumatic, normocephalic - Eye Eye exam: Present: EOMI - ENT ENT exam: Present: mucous membranes moist - Expanded ENT Exam Expanded Teeth exam: Present: other (many teeth missing). Absent: gingival enlargement - Neck Neck exam: Present: normal inspection, full ROM - Respiratory Respiratory exam: Present: normal lung sounds bilaterally. Absent: respiratory distress - Cardiovascular Cardiovascular Exam: Present: regular rate, normal rhythm. Absent: systolic murmur, diastolic murmur, rubs, gallop - Back Exam Back exam: Present: normal inspection, full ROM, tenderness - Neurological Exam Neurological exam: Present: alert, oriented X3, normal gait - Psychiatric Psychiatric exam: Present: normal affect, normal mood - Skin Skin exam: Present: warm, dry, intact, normal color. Absent: rash ED Course Vital Signs 07/16/18 22:46 Temperature 99 F Pulse Rate 100 H Respiratory 18 Rate Blood Pressure 142/91 O2 Sat by Pulse 97 Oximetry ED Medical Decision Making - Medical Decision Making Patient has been evaluated by this provider in fast track. Discussed patient with do not treat chronic pain. That he needs to follow-up with his [facility] provider. I did also discuss the patient he can increase his gabapentin to 600 mg 3 times a day in to take Tylenol arthritis 650 mg 1 tablet by mouth 3 times a day. Patient be discharged home on tramadol 50 mg every 6h dispensed 12 refills Critical care attestation.: If time is entered above; I have spent that time in minutes in the direct care of this critically ill patient, excluding procedure time. ED Disposition Clinical Impression: Chronic back pain greater than 3 months duration, Head and face pain, Obesity (BMI 30.0-34.9) Disposition: TO HOME OR SELFCARE Is pt being admited?: No Does the pt Need Aspirin: No Condition: Stable Instructions: Chronic Back Pain (ED) Additional Instructions: Please take pain medication as prescribed. You can increase her gabapentin to 2 tablets 3 times a day. Please take Tylenol arthritis 650 mg 1 tablet 3 times a day. Please follow up with [facility] for your chronic disease management. Prescriptions: Tramadol HCl [Ultram] 50 mg PO Q6H PRN #12 tablet PRN Reason: pain Referrals: PRIMARY CARE, [Primary Care Provider] - 3-5 Days [facility] [Outside] - 3-5 Days
[2018-07-17 06:29] VITALS: BP 131/79
== END 2018-07-17 06:40 | disposition home or self-care (01) ==
LOC: ED 22:09
DX: G89.29 Other chronic pain (principal); M54.5 Low back pain; R51 Headache; E66.9 Obesity, unspecified; I10 Essential (primary) hypertension; M19.90 Unspecified osteoarthritis, unspecified site; F17.200 Nicotine dependence, unspecified, uncomplicated; Z68.30 Body mass index [BMI] 30.0-30.9, adult
CPT/HCPCS: 99282

== ENCOUNTER 2018-09-09 17:36 | Emergency (ER) | payer SELFPAY ==
[2018-09-09 17:48] VITALS: BP 167/86
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
[2018-09-09] MEDS ORDERED: TORADOL IM ONE (19:49)
[2018-09-09 20:06] LABS: Bilirubin,Urine NEG (Negative); Blood,Urine NEG (Negative); Color,Urine Colorless (Yellow); Protein,Urine <15 mg/dL mg/dL (Negative); Urobilinogen,Urine < 2.0 mg/dL (<2.0)
--- NOTE | 2018-09-09 20:29 | Emergency Department Report ---
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 No loss of decrease in bowel or bladder function patient presents [facility] for pain control and referral to orthopedics . Patient denies injury fall or trauma patient drove the hospital tonight patient is hammertoe to baseline per patient There is or has never been any urinary dysuria frequency urgency or hematuria MD Complaint: back pain Onset/Timin -: week(s) Similar Symptoms Previously: Yes Place: home Radiation: right leg Severity: moderate Severity scale (0 -10): 5 Quality: burning, aching Consistency: intermittent Improves With: other (rest ) Worsens With: movement, sitting upright, other (bending twisting prolonged sitting and standing ) Context: bending Associated Symptoms: denies: weakness, numbness, difficulty urinating, incontinence, constipation - Related Data Previous Rx's Medication Instructions Recorded Last Taken Type Meclizine [Antivert] 25 mg PO Q8H PRN #30 tablet 07/20/17 Unknown Rx Cyclobenzaprine [Flexeril] 10 mg PO BID PRN #14 tablet 01/19/18 Unknown Rx Ibuprofen [Motrin] 600 mg PO Q8H PRN #30 tablet 01/19/18 Unknown Rx Prednisone [predniSONE 10 mg 10 mg PO .TAPER #1 tab.ds.pk 01/19/18 Unknown Rx (6-Day Pack, 21 Tabs)] Methocarbamol [Robaxin-750] 750 mg PO Q12H PRN #12 tablet 04/06/18 Unknown Rx Tramadol HCl [Ultram] 50 mg PO Q6H PRN #12 tablet 07/17/18 Unknown Rx Cyclobenzaprine [Flexeril] 10 mg PO TID PRN #30 tablet 09/09/18 Unknown Rx Menthol/Camphor [[place] 1 applicatio TP QID PRN #1 tube 09/09/18 Unknown Rx Ointment] Naproxen 500 mg PO BID PRN #30 tablet 09/09/18 Unknown Rx Allergies Allergy/AdvReac Type Severity Reaction Status Date / Time No Known Allergies Allergy Verified 01/19/18 13:48 ED Review of Systems ROS: Stated complaint: BACK PAIN/SKIN PRIVATE AREA Other details as noted in HPI Constitutional: denies: chills, fever Eyes: denies: eye pain, eye discharge, vision change ENT: denies: ear pain, throat pain Respiratory: denies: cough, shortness of breath, wheezing Cardiovascular: denies: chest pain, palpitations Endocrine: no symptoms reported Gastrointestinal: denies: abdominal pain, nausea, diarrhea Genitourinary: denies: urgency, dysuria Musculoskeletal: back pain, arthralgia Skin: denies: rash, lesions Neurological: denies: headache, weakness, paresthesias Psychiatric: denies: anxiety, depression Hematological/Lymphatic: denies: easy bleeding, easy bruising ED Past Medical Hx - Past Medical History Hx Hypertension: Yes Hx Arthritis: Yes Additional medical history: CHRONIC LEFT SHOULDER PAIN. CHRONIC BACK PAIN - Surgical History Past Surgical History?: Yes Additional Surgical History: left shoulder repair - Social History Smoking Status: Current Every Day Smoker - Medications Home Medications: Home Medications Medication Instructions Recorded Confirmed Last Taken Type Meclizine [Antivert] 25 mg PO Q8H PRN #30 tablet 07/20/17 Unknown Rx Cyclobenzaprine [Flexeril] 10 mg PO BID PRN #14 tablet 01/19/18 Unknown Rx Ibuprofen [Motrin] 600 mg PO Q8H PRN #30 tablet 01/19/18 Unknown Rx Prednisone [predniSONE 10 mg 10 mg PO .TAPER #1 tab.ds.pk 01/19/18 Unknown Rx (6-Day Pack, 21 Tabs)] Methocarbamol [Robaxin-750] 750 mg PO Q12H PRN #12 tablet 04/06/18 Unknown Rx Tramadol HCl [Ultram] 50 mg PO Q6H PRN #12 tablet 07/17/18 Unknown Rx Cyclobenzaprine [Flexeril] 10 mg PO TID PRN #30 tablet 09/09/18 Unknown Rx Menthol/Camphor [[place] 1 applicatio TP QID PRN #1 tube 09/09/18 Unknown Rx Ointment] Naproxen 500 mg PO BID PRN #30 tablet 09/09/18 Unknown Rx ED Physical Exam - General Limitations: No Limitations General appearance: alert, in no apparent distress - Head Head exam: Present: atraumatic, normocephalic - Eye Eye exam: Present: normal appearance - ENT ENT exam: Present: mucous membranes moist - Neck Neck exam: Present: normal inspection - Respiratory Respiratory exam: Present: normal lung sounds bilaterally. Absent: respiratory distress - Cardiovascular Cardiovascular Exam: Present: regular rate, normal rhythm. Absent: systolic murmur, diastolic murmur, rubs, gallop - GI/Abdominal GI/Abdominal exam: Present: soft, normal bowel sounds - Rectal Rectal exam: Present: deferred - Extremities Exam Extremities exam: Present: normal inspection, full ROM, normal capillary refill. Absent: tenderness, pedal edema, joint swelling - Back Exam Back exam: Present: full ROM, tenderness (right lateral lumbar ), muscle spasm, paraspinal tenderness. Absent: CVA tenderness (R), CVA tenderness (L), vertebral tenderness, rash noted - Expanded Back Exam Expanded Back exam: Present: other (there is no posterior vertebral point tenderness mild paraspinus muscle tenderness to deep palpation ). Absent: saddle anesthesia Back exam: Positive Straight Leg Raise: Right - Neurological Exam Neurological exam: Present: alert, oriented X3, CN II-XII intact, normal gait, reflexes normal - Expanded Neurological Exam Expanded Patient oriented to: Present: person, place, time Speech: Present: fluid speech Cerebellar function: Heel to [place]: Normal Sensory exam: Lower Extremity Light Touch: Normal, Lower Extremity Pin Prick: Normal, Lower Extremity Temperature: Normal, LE 2 Point Discrimination: Normal Motor strength exam: RLE: 5, LLE: 5 DTR: knee (R): 2+, knee (L): 2+, ankle (R): 2+, ankle (L): 2+ Best Eye Response ([place]): (4) open spontaneously Best Motor Response ([place]): (6) obeys commands Best Verbal Response ([place]): (5) oriented [place] Total: 15 - Psychiatric Psychiatric exam: Present: normal affect, normal mood - Skin Skin exam: Present: warm, dry, intact, normal color. Absent: rash ED Course Vital Signs 09/09/18 17:45 Temperature 98.5 F Pulse Rate 91 H Blood Pressure 167/86 O2 Sat by Pulse 98 Oximetry ED Medical Decision Making - Lab Data Labs 09/09/18 19:28 Urine Color Colorless Urine Turbidity Clear Urine pH 6.0 Ur Specific [place] 1.002 L Urine Protein <15 mg/dl Urine Glucose (UA) Neg Urine Ketones Neg Urine Blood Neg Urine Nitrite Neg Urine Bilirubin Neg Urine Urobilinogen < 2.0 Ur Leukocyte Esterase Neg Urine WBC (Auto) 1.0 Urine RBC (Auto) 1.0 U Epithel Cells (Auto) 1.0 - Medical Decision Making this is acute on chronic low back pain , pain is improved exam: no weakness numbness or paresthesia no loss or decrease in bowel or bladder function , pt is ambulatory with steady gait, UA is normal, plan nsaids muscl relaxants, analgesic balm, follow up with pcp in 2-3 days, pt verbalized agreement and understanding with discharge plan. dc to home in stable condition at this time. Critical care attestation.: If time is entered above; I have spent that time in minutes in the direct care of this critically ill patient, excluding procedure time. ED Disposition Clinical Impression: Lumbar strain Qualifiers: Encounter type: initial encounter Qualified Code(s): S39.012A - Strain of muscle, fascia and tendon of lower back, initial encounter Chronic low back pain Qualifiers: Back pain laterality: right Sciatica presence: with sciatica Sciatica laterality: sciatica of right side Qualified Code(s): M54.41 - Lumbago with sciatica, right side; G89.29 - Other chronic pain Disposition: DC-01 TO HOME OR SELFCARE Is pt being admited?: No Does the pt Need Aspirin: No Condition: Stable Instructions: Low Back Strain (ED), Chronic Back Pain (ED), Core Strengthening Exercises (GEN) Prescriptions: Cyclobenzaprine [Flexeril] 10 mg PO TID PRN #30 tablet PRN Reason: Muscle Spasm Menthol/Camphor [[place] Ointment] 1 applicatio TP QID PRN #1 tube PRN Reason: pain Naproxen 500 mg PO BID PRN #30 tablet PRN Reason: pain Referrals: [facility] MD WU [Primary Care Provider] - 3-5 Days BANDAR CEDILLO MD [Staff Physician] - 3-5 Days Forms: Work/School Release Form(ED)
== END 2018-09-09 20:57 | disposition home or self-care (01) ==
LOC: ED 17:36
DX: S39.012A Strain of muscle, fascia and tendon of lower back, initial encounter (principal); M54.41 Lumbago with sciatica, right side; G89.29 Other chronic pain; I10 Essential (primary) hypertension; M19.90 Unspecified osteoarthritis, unspecified site; F17.200 Nicotine dependence, unspecified, uncomplicated; X58.XXXA Exposure to other specified factors, initial encounter; Y93.89 Activity, other specified; Y92.89 Other specified places as the place of occurrence of the external cause; Y99.8 Other external cause status
CPT/HCPCS: 81001; 96372; 99283; J1885

== ENCOUNTER 2019-01-15 07:27 | Emergency (ER) | payer OTHER ==
[2019-01-15 07:38] VITALS: BP 132/86
[2019-01-15] MEDS ORDERED: TORADOL IM ONE (08:40)
[2019-01-15] MEDS ORDERED: DELTASONE PO ONE (08:40)
--- NOTE | 2019-01-15 08:45 | Emergency Department Report ---
ED Back Pain/Injury HPI - General Chief Complaint: Back Pain/Injury Stated Complaint: LOW BACK PAIN Time Seen by Provider: 01/15/19 08:13 Source: patient Limitations: No Limitations - History of Present Illness Initial Comments: This is a 58-year-old male nontoxic, well nourished in appearance, no acute signs of distress presents to the ED with c/o of acute on chronic lower back pain. Patient stated that the past 2 days he was moving and developed this pain. The patient stated that he had a fall in 2003 and last MRI/x-rays was last year and was diagnosed with L5-S1 slipped disc. Patient states has history of sciatica nerve pain which is similar symptoms as today. Patient states that pain radiates through to his left lower extremity. Patient denies any trauma. Denies any bladder or bowel instability. Patient denies any urinary symptoms. Denies any fever, chills, nausea, vomiting, headache, stiff neck, chest pain or shortness of breath. Patient denies any numbness or tingling. Denies any allergies. Denies significant past medical history. MD Complaint: back pain -: year(s) Similar Symptoms Previously: Yes Place: home Radiation: left leg Severity: mild Severity scale (0 -10): 8 Quality: aching Consistency: intermittent Improves With: immobilization, sitting upright Worsens With: movement, walking Context: while lifting, turning/twisting Associated Symptoms: denies other symptoms. denies: confusion, weakness, chest pain, numbness, difficulty walking, cough, diaphoresis, incontinence, fever/chills, constipation, headaches, abdominal pain, loss of appetite, malaise, nausea/vomiting, rash, seizure, shortness of breath, syncope - Related Data Previous Rx's Medication Instructions Recorded Last Taken Type Meclizine [Antivert] 25 mg PO Q8H PRN #30 tablet 07/20/17 Unknown Rx Cyclobenzaprine [Flexeril] 10 mg PO BID PRN #14 tablet 01/19/18 Unknown Rx Ibuprofen [Motrin] 600 mg PO Q8H PRN #30 tablet 01/19/18 Unknown Rx Prednisone [predniSONE 10 mg 10 mg PO .TAPER #1 tab.ds.pk 01/19/18 Unknown Rx (6-Day Pack, 21 Tabs)] Methocarbamol [Robaxin-750] 750 mg PO Q12H PRN #12 tablet 04/06/18 Unknown Rx Tramadol HCl [Ultram] 50 mg PO Q6H PRN #12 tablet 07/17/18 Unknown Rx Cyclobenzaprine [Flexeril] 10 mg PO TID PRN #30 tablet 09/09/18 Unknown Rx Menthol/Camphor [[place] 1 applicatio TP QID PRN #1 tube 09/09/18 Unknown Rx Ointment] Naproxen 500 mg PO BID PRN #30 tablet 09/09/18 Unknown Rx Cyclobenzaprine [Flexeril] 10 mg PO QHS PRN #10 tablet 01/15/19 Unknown Rx Naproxen [Naprosyn TAB] 500 mg PO Q12H PRN #20 tablet 01/15/19 Unknown Rx Allergies Allergy/AdvReac Type Severity Reaction Status Date / Time No Known Allergies Allergy Verified 01/19/18 13:48 ED Review of Systems ROS: Stated complaint: LOW BACK PAIN Other details as noted in HPI Constitutional: denies: chills, fever Eyes: denies: eye pain, eye discharge, vision change ENT: denies: ear pain, throat pain Respiratory: denies: cough, shortness of breath, wheezing Cardiovascular: denies: chest pain, palpitations Endocrine: no symptoms reported Gastrointestinal: denies: abdominal pain, nausea, diarrhea Genitourinary: denies: urgency, dysuria Musculoskeletal: back pain. denies: joint swelling, arthralgia Skin: denies: rash, lesions Neurological: denies: headache, weakness, paresthesias Psychiatric: denies: anxiety, depression Hematological/Lymphatic: denies: easy bleeding, easy bruising ED Past Medical Hx - Past Medical History Hx Hypertension: Yes Hx Arthritis: Yes Additional medical history: CHRONIC LEFT SHOULDER PAIN. CHRONIC BACK PAIN - Surgical History Additional Surgical History: left shoulder repair - Social History Smoking Status: Current Every Day Smoker Substance Use Type: Alcohol - Medications Home Medications: Home Medications Medication Instructions Recorded Confirmed Last Taken Type Meclizine [Antivert] 25 mg PO Q8H PRN #30 tablet 07/20/17 Unknown Rx Cyclobenzaprine [Flexeril] 10 mg PO BID PRN #14 tablet 01/19/18 Unknown Rx Ibuprofen [Motrin] 600 mg PO Q8H PRN #30 tablet 01/19/18 Unknown Rx Prednisone [predniSONE 10 mg 10 mg PO .TAPER #1 tab.ds.pk 01/19/18 Unknown Rx (6-Day Pack, 21 Tabs)] Methocarbamol [Robaxin-750] 750 mg PO Q12H PRN #12 tablet 04/06/18 Unknown Rx Tramadol HCl [Ultram] 50 mg PO Q6H PRN #12 tablet 07/17/18 Unknown Rx Cyclobenzaprine [Flexeril] 10 mg PO TID PRN #30 tablet 09/09/18 Unknown Rx Menthol/Camphor [[place] 1 applicatio TP QID PRN #1 tube 09/09/18 Unknown Rx Ointment] Naproxen 500 mg PO BID PRN #30 tablet 09/09/18 Unknown Rx Cyclobenzaprine [Flexeril] 10 mg PO QHS PRN #10 tablet 01/15/19 Unknown Rx Naproxen [Naprosyn TAB] 500 mg PO Q12H PRN #20 tablet 01/15/19 Unknown Rx ED Physical Exam - General Limitations: No Limitations General appearance: alert, in no apparent distress - Head Head exam: Present: atraumatic, normocephalic - Neck Neck exam: Present: normal inspection, full ROM. Absent: tenderness, menin gismus, lymphadenopathy - Extremities Exam Extremities exam: Present: normal inspection, full ROM, pedal edema - Back Exam Back exam: Present: normal inspection, full ROM, paraspinal tenderness (lumbar paraspinal). Absent: tenderness, CVA tenderness (R), CVA tenderness (L), muscle spasm, vertebral tenderness, rash noted - Expanded Back Exam Expanded Back exam: Absent: saddle anesthesia Back exam: Negative Straight Leg Raising: Left, Right - Neurological Exam Neurological exam: Present: alert, oriented X3, normal gait - Psychiatric Psychiatric exam: Present: normal affect, normal mood - Skin Skin exam: Present: warm, dry, intact, normal color. Absent: rash ED Course Vital Signs 01/15/19 01/15/19 07:37 08:49 Temperature 98.1 F Pulse Rate 85 Respiratory 20 18 Rate Blood Pressure 132/86 [Right] O2 Sat by Pulse 98 Oximetry - Reevaluation(s) Reevaluation #1: 01/15/19 09:18 Patient is speaking in full sentences with no signs of distress noted. ED Medical Decision Making - Medical Decision Making This is a 58-year-old male that presents with low back strain. Patient is stable was examined by me. There is no spinal tenderness. There is no cauda equina syndrome during examination. No bladder or bowel instability. Patient received Toradol 60 mg IM and predniosone in the ED which preceded his symptoms has resolved and subsided. Patient is discharged with muscle relaxant and Motrin. Patient was instructed not to operate any machinery while taking muscle relaxant as they cause her drowsiness. Patient was referred to Follow-up with a primary care doctor in 3-5 days or if symptoms worsen and continue return to emergency room as soon as possible. At time of discharge, the patient does not seem toxic or ill in appearance. No acute signs of distress noted. Patient agrees to discharge treatment plan of care. No further questions noted by the patient. This chart is dictated with using [employer] Critical care attestation.: If time is entered above; I have spent that time in minutes in the direct care of this critically ill patient, excluding procedure time. ED Disposition Clinical Impression: Low back strain Disposition: DC-01 TO HOME OR SELFCARE Is pt being admited?: No Does the pt Need Aspirin: No Condition: Stable Instructions: Low Back Strain (ED), Cyclobenzaprine (By mouth) Additional Instructions: Follow-up with your primary care doctor in 3-5 days or if symptoms worsen such as bladder or bowel stability, chest pain, short of breath, numbness or tingling sensation in extremities, headache, dizziness, visual changes, nausea vomiting, or abdominal pain, return back to emergency room as was possible. Take ibuprofen and Flexeril as prescribed. Do not operate heavy machinery while taking Flexeril due to sedation Prescriptions: Cyclobenzaprine [Flexeril] 10 mg PO QHS PRN #10 tablet PRN Reason: Muscle Spasm Naproxen [Naprosyn TAB] 500 mg PO Q12H PRN #20 tablet PRN Reason: Pain , Severe (7-10) Referrals: NAKUL WEI MD [Primary Care Provider] - 3-5 Days TIFF MARLOW MD [Referring] - 3-5 Days HENOK PACKER MD [Staff Physician] - 3-[address] [facility] [Outside] - 3-5 Days [facility] [Outside] - 3-5 Days
== END 2019-01-15 09:42 | disposition home or self-care (01) ==
LOC: ED 07:27
DX: S39.012A Strain of muscle, fascia and tendon of lower back, initial encounter (principal); I10 Essential (primary) hypertension; M19.90 Unspecified osteoarthritis, unspecified site; G89.29 Other chronic pain; M25.512 Pain in left shoulder; F17.200 Nicotine dependence, unspecified, uncomplicated; Z79.899 Other long term (current) drug therapy; X58.XXXA Exposure to other specified factors, initial encounter; Y93.89 Activity, other specified; Y92.89 Other specified places as the place of occurrence of the external cause; Y99.8 Other external cause status
CPT/HCPCS: 96372; 99282; J1885; J7512

== ENCOUNTER 2019-08-24 14:00 | Emergency (ER) | payer SELFPAY ==
[2019-08-24 14:37] VITALS: BP 152/89
--- NOTE | 2019-08-24 15:47 | Emergency Department Report ---
Chief Complaint: Back Pain/Injury Stated Complaint: BACK PAIN, DIZZY - HPI History of Present Illness: 58 yo AA M presents with some mid back pain that wraps around his flanks b/l and to the lower abdomen. Mild dysuria. Hx of chronic back pains since 2002 and exacerbated in 2017. No numbness. Ambulatory. Has PCP but no orthopedist. No recent fall, trauma or injury. - ROS Review of Systems: +back, flank and abdominal pain, mild dysuria -Fever, urinary retention, numbness - Exam Vital Signs: Vital Signs 08/24/19 14:07 Temperature 98.4 F Pulse Rate 107 H Respiratory 18 Rate Blood Pressure 152/89 O2 Sat by Pulse 94 Oximetry Physical Exam: There is some reproducible lower thoracic back pain midline and b/l paraspinal. No step off or deformity. Mild reproducible lower abd pain. Abdomen soft. Ambulatory into triage room. AAO X 3. MSE screening note: Focused history and physical exam performed. Due to findings the following was ordered: CBC, CMP, U/A Further evaluation in fast track. Patient discussed with doctor:: CHUNG CALDERON ED Disposition for MSE Condition: Stable Referrals: PRIMARY CARE, [Primary Care Provider] - 3-5 Days
[2019-08-24] MEDS ORDERED: MECLIZINE 25 MG TAB PO ONE (16:09)
[2019-08-24] MEDS ORDERED: SODIUM CHLORIDE 0.9% 1000 ML 1,000 ML IV ONE (16:09)
[2019-08-24 16:31] LABS: Basophils # (Auto) 0.1 K/mm3 (0.0-0.1); Basophils % (Auto) 0.7 % (0.0-1.8); Eosinophils # (Auto) 0.1 K/mm3 (0.0-0.4); Eosinophils % (Auto) 1.5 % (0.0-4.3); Hematocrit 44.5 % (35.5-45.6); Hemoglobin 14.9 gm/dl (11.8-15.2); Lymphocytes # (Auto) 3.9 K/mm3 (1.2-5.4); Lymphocytes % (Auto) 41.2 % (13.4-35.0); Mean Corpuscular HGB Conc 34 % (32-34); Mean Corpuscular Volume 91 fl (84-94); Monocytes # (Auto) 0.8 K/mm3 (0.0-0.8); Monocytes % (Auto) 8.8 % (0.0-7.3); Platelet Count 313 K/mm3 (140-440); Red Blood Count 4.89 M/mm3 (3.65-5.03)
[2019-08-24] MEDS ORDERED: KETOROLAC 30 MG/1 ML INJ IV ONE (16:50)
[2019-08-24 16:54] LABS: Alanine Aminotransferase 12 units/L (7-56); Albumin 4.1 g/dL (3.9-5); BUN/Creatinine Ratio 8; Blood Urea Nitrogen 10 mg/dL (9-20); Calcium 9.5 mg/dL (8.4-10.2); Hemolysis Index 15
[2019-08-24 17:08] LABS: Bilirubin,Urine NEG (Negative); Blood,Urine NEG (Negative); Color,Urine Yellow (Yellow); Protein,Urine <15 mg/dL mg/dL (Negative); Urobilinogen,Urine < 2.0 mg/dL (<2.0)
--- NOTE | 2019-08-24 18:07 | Emergency Department Report ---
ED Dizziness HPI - General Chief Complaint: Back Pain/Injury Stated Complaint: BACK PAIN, DIZZY Time Seen by Provider: 08/24/19 16:09 Source: patient Mode of arrival: Ambulatory Limitations: No Limitations - History of Present Illness Initial Comments: This is a 58-year-old male nontoxic, well nourished in appearance, no acute signs of distress presents to the ED with c/o of dizziness and chronic lower back pain. Patient has history of lumbar generative arthritis and bulging disc. Patient denies any radiation of pain. Patient stated dizziness occurs with movement. Patient denies any head injuries or trauma. Patient denies any visual changes. Patient denies any other complaints. Denies any new injuries or trauma. Patient states that pain radiates through to his left lower extremity. Patient denies any trauma. Denies any bladder or bowel instability. Patient denies any urinary symptoms. Denies any fever, chills, nausea, vomiting, headache, stiff neck, chest pain or shortness of breath. Patient denies any numbness or tingling. Denies any allergies. PMH includes HTN and arthritis. MD Complaint: dizziness -: days(s) Description: sense of movement History of Same: Yes History of Trauma: No Severity: mild Improves With: nothing Worsens With: position Associated Symptoms: denies other symptoms. denies: ataxia, chest pain, confusion, cough, diaphoresis, fever/chills, loss of appetite, malaise, rash, se izure, shortness of breath, syncope, weakness - Related Data Previous Rx's Medication Instructions Recorded Last Taken Type Meclizine [Antivert] 25 mg PO Q8H PRN #30 tablet 07/20/17 Unknown Rx Cyclobenzaprine [Flexeril] 10 mg PO BID PRN #14 tablet 01/19/18 Unknown Rx Ibuprofen [Motrin] 600 mg PO Q8H PRN #30 tablet 01/19/18 Unknown Rx Prednisone [predniSONE 10 mg 10 mg PO .TAPER #1 tab.ds.pk 01/19/18 Unknown Rx (6-Day Pack, 21 Tabs)] Methocarbamol [Robaxin-750] 750 mg PO Q12H PRN #12 tablet 04/06/18 Unknown Rx Tramadol HCl [Ultram] 50 mg PO Q6H PRN #12 tablet 07/17/18 Unknown Rx Cyclobenzaprine [Flexeril] 10 mg PO TID PRN #30 tablet 09/09/18 Unknown Rx Menthol/Camphor [[place] 1 applicatio TP QID PRN #1 tube 09/09/18 Unknown Rx Ointment] Naproxen 500 mg PO BID PRN #30 tablet 09/09/18 Unknown Rx Cyclobenzaprine [Flexeril] 10 mg PO QHS PRN #10 tablet 01/15/19 Unknown Rx Naproxen [Naprosyn TAB] 500 mg PO Q12H PRN #20 tablet 01/15/19 Unknown Rx Meclizine [Antivert] 25 mg PO TID PRN #10 tablet 08/24/19 Unknown Rx Naproxen 500 mg PO Q12H PRN #10 tablet 08/24/19 Unknown Rx Allergies Allergy/AdvReac Type Severity Reaction Status Date / Time No Known Allergies Allergy Verified 08/24/19 14:04 ED Review of Systems ROS: Stated complaint: BACK PAIN, DIZZY Other details as noted in HPI Constitutional: denies: chills, fever Eyes: denies: eye pain, eye discharge, vision change ENT: denies: ear pain, throat pain Respiratory: denies: cough, shortness of breath, wheezing Cardiovascular: denies: chest pain, palpitations Endocrine: no symptoms reported Gastrointestinal: denies: abdominal pain, nausea, vomiting, diarrhea Genitourinary: denies: urgency, dysuria Musculoskeletal: back pain. denies: joint swelling, arthralgia Skin: denies: rash, lesions Neurological: vertigo. denies: headache, weakness, paresthesias Psychiatric: denies: anxiety, depression Hematological/Lymphatic: denies: easy bleeding, easy bruising ED Past Medical Hx - Past Medical History Hx Hypertension: Yes Hx Arthritis: Yes Additional medical history: CHRONIC LEFT SHOULDER PAIN. CHRONIC BACK PAIN - Surgical History Additional Surgical History: left shoulder repair - Social History Smoking Status: Current Every Day Smoker Substance Use Type: Alcohol - Medications Home Medications: Home Medications Medication Instructions Recorded Confirmed Last Taken Type Meclizine [Antivert] 25 mg PO Q8H PRN #30 tablet 07/20/17 Unknown Rx Cyclobenzaprine [Flexeril] 10 mg PO BID PRN #14 tablet 01/19/18 Unknown Rx Ibuprofen [Motrin] 600 mg PO Q8H PRN #30 tablet 01/19/18 Unknown Rx Prednisone [predniSONE 10 mg 10 mg PO .TAPER #1 tab.ds.pk 01/19/18 Unknown Rx (6-Day Pack, 21 Tabs)] Methocarbamol [Robaxin-750] 750 mg PO Q12H PRN #12 tablet 04/06/18 Unknown Rx Tramadol HCl [Ultram] 50 mg PO Q6H PRN #12 tablet 07/17/18 Unknown Rx Cyclobenzaprine [Flexeril] 10 mg PO TID PRN #30 tablet 09/09/18 Unknown Rx Menthol/Camphor [[place] 1 applicatio TP QID PRN #1 tube 09/09/18 Unknown Rx Ointment] Naproxen 500 mg PO BID PRN #30 tablet 09/09/18 Unknown Rx Cyclobenzaprine [Flexeril] 10 mg PO QHS PRN #10 tablet 01/15/19 Unknown Rx Naproxen [Naprosyn TAB] 500 mg PO Q12H PRN #20 tablet 01/15/19 Unknown Rx Meclizine [Antivert] 25 mg PO TID PRN #10 tablet 08/24/19 Unknown Rx Naproxen 500 mg PO Q12H PRN #10 tablet 08/24/19 Unknown Rx ED Physical Exam - General Limitations: No Limitations General appearance: alert, in no apparent distress - Head Head exam: Present: atraumatic, normocephalic - Eye Eye exam: Present: normal appearance - Neck Neck exam: Present: normal inspection, full ROM. Absent: tenderness, meningismus, lymphadenopathy - Respiratory Respiratory exam: Present: normal lung sounds bilaterally. Absent: respiratory distress, wheezes, rales, rhonchi, stridor, chest wall tenderness, accessory muscle use, decreased breath sounds, prolonged expiratory - Cardiovascular Cardiovascular Exam: Present: regular rate, normal rhythm, normal heart sounds. Absent: irregular rhythm, systolic murmur, diastolic murmur, rubs, gallop - GI/Abdominal GI/Abdominal exam: Present: soft, normal bowel sounds. Absent: distended, tenderness, guarding, rebound, rigid, diminished bowel sounds - Extremities Exam Extremities exam: Present: normal inspection, full ROM, normal capillary refill. Absent: tenderness - Back Exam Back exam: Present: normal inspection, full ROM, paraspinal tenderness (lumbar paraspinal). Absent: tenderness, CVA tenderness (R), CVA tenderness (L), muscle spasm, vertebral tenderness, rash noted - Expanded Back Exam Expanded Back exam: Absent: saddle anesthesia Back exam: Negative Straight Leg Raising: Left, Right - Neurological Exam Neurological exam: Present: alert, oriented X3, normal gait - Expanded Neurological Exam Expanded Patient oriented to: Present: person, place, time Cranial nerves: EOM's Intact: Normal, Facial Sensation: Normal Cerebellar function: Finger to Nose: Normal Upper motor neuron: Pronator Drift: Normal, Sensory Extinction: Normal Motor strength exam: RUE: 5, LUE: 5, RLE: 5, LLE: 5 Best Eye Response ([place]): (4) open spontaneously Best Motor Response ([place]): (6) obeys commands Best Verbal Response ([place]): (5) oriented [place] Total: 15 - Psychiatric Psychiatric exam: Present: normal affect, normal mood - Skin Skin exam: Present: warm, dry, intact, normal color. Absent: rash ED Course Vital Signs 08/24/19 08/24/19 14:07 16:58 Temperature 98.4 F Pulse Rate 107 H Respiratory 18 18 Rate Blood Pressure 152/89 O2 Sat by Pulse 94 Oximetry - Reevaluation(s) Reevaluation #1: 08/24/19 18:12 Patient is speaking in full sentences with no signs of distress noted. ED Medical Decision Making - Lab Data Result diagrams: 08/24/19 16:08 08/24/19 16:08 - Medical Decision Making This is a 58-year-old male that presents with chronic lower back pain and dizziness. Patient is stable and was examined by me. There is no spinal tenderness. There is no cauda equina syndrome during examination. No bladder or bowel instability. Labs are unremarkable. Urine within normal limits. There is a normal neurological exam. Patient received resuscitation in ER which symptoms of dizziness and pain has resolved subsided. Patient will be dis charged with naproxen and Antivert for dizziness. Patient was instructed to Follow-up with a primary care doctor in 3-5 days or if symptoms worsen and continue return to emergency room as soon as possible. At time of discharge, the patient does not seem toxic or ill in appearance. No acute signs of distress noted. Patient agrees to discharge treatment plan of care. No further questions noted by the patient. Critical care attestation.: If time is entered above; I have spent that time in minutes in the direct care of this critically ill patient, excluding procedure time. ED Disposition Clinical Impression: Dizziness Chronic back pain Qualifiers: Back pain location: low back pain Back pain laterality: unspecified Sciatica presence: without sciatica Qualified Code(s): M54.5 - Low back pain; G89.29 - Other chronic pain Disposition: TO HOME OR SELFCARE Is pt being admited?: No Does the pt Need Aspirin: No Condition: Stable Instructions: Vertigo (ED), Low Back Strain (ED) Additional Instructions: Follow-up with your primary care doctor in 3-5 days or if symptoms worsen such as bladder or bowel stability, chest pain, short of breath, numbness or tingling sensation in extremities, headache, dizziness, visual changes, nausea vomiting, or abdominal pain, return back to emergency room as was possible. Prescriptions: Meclizine [Antivert] 25 mg PO TID PRN #10 tablet PRN Reason: Vertigo Naproxen 500 mg PO Q12H PRN #10 tablet PRN Reason: Pain , Severe (7-10) Referrals: PRIMARY CAREMD [Primary Care Provider] - 3-5 Days SUSY HOWARD MD [Staff Physician] - 3-5 Days [facility] [Outside] - 3-5 Days Forms: Work/School Release Form(ED)
== END 2019-08-24 18:27 | disposition home or self-care (01) ==
LOC: ED 14:00
DX: R42 Dizziness and giddiness (principal); M54.5 Low back pain; M19.90 Unspecified osteoarthritis, unspecified site; I10 Essential (primary) hypertension; F17.200 Nicotine dependence, unspecified, uncomplicated; Z98.890 Other specified postprocedural states; Z79.1 Long term (current) use of non-steroidal anti-inflammatories (NSAID); Z79.899 Other long term (current) drug therapy
CPT/HCPCS: 36415; 80053; 81001; 85025; 96361; 96374; 99283; J1885; J7030

== ENCOUNTER 2019-11-18 00:36 | Emergency (ER) | payer SELFPAY ==
[2019-11-18] MEDS ORDERED: SODIUM CHLORIDE 0.9% 1000 ML 1,000 ML IV ONE (00:54)
[2019-11-18] MEDS ORDERED: SODIUM CHLORIDE 0.9% 1000 ML 1,000 ML ONE (00:54)
[2019-11-18 01:24] LABS: Basophils % (Auto) 0.4 % (0.0-1.8); Eosinophils % (Auto) 0.2 % (0.0-4.3); Hematocrit 39.5 % (35.5-45.6); Hemoglobin 13.4 gm/dl (11.8-15.2); Lymphocytes # (Auto) 1.8 K/mm3 (1.2-5.4); Lymphocytes % (Auto) 15.9 % (13.4-35.0); Mean Corpuscular HGB Conc 34 % (32-34); Mean Corpuscular Volume 91 fl (84-94); Monocytes # (Auto) 0.6 K/mm3 (0.0-0.8); Monocytes % (Auto) 5.6 % (0.0-7.3); Platelet Count 313 K/mm3 (140-440); Red Blood Count 4.32 M/mm3 (3.65-5.03); Red Cell Distribution Width 14.4 % (13.2-15.2)
[2019-11-18 01:42] LABS: BUN/Creatinine Ratio 12; Blood Urea Nitrogen 17 mg/dL (9-20); Calcium 8.8 mg/dL (8.4-10.2); Hemolysis Index 10
--- NOTE | 2019-11-18 04:46 | Emergency Department Report ---
<MANUEL WILSON - Last Filed: 11/18/19 05:42> ED General Adult HPI - General Chief complaint: Psych Stated complaint: DRUG/ALCOHOL Time Seen by Provider: 11/18/19 00:46 Source: patient, EMS Mode of arrival: Stretcher Limitations: Other - History of Present Illness Initial comments: Patient is a 58-year-old F [place] male who paramedics were called to the residence because of patient's appear to have lost consciousness. Patient does admit to cocaine abuse and the lady that called paramedics. Intoxicated as well. Paramedics state that the female who called paramedics stated that the patient was completely unconscious and not breathing and she had to "blow in his mouth" patient states that he is just sleepy because he has not slept and has been taking large amounts of cocaine Severity scale (0 -10): 0 - Related Data Previous Rx's Medication Instructions Recorded Last Taken Type Meclizine [Antivert] 25 mg PO Q8H PRN #30 tablet 07/20/17 Unknown Rx Cyclobenzaprine [Flexeril] 10 mg PO BID PRN #14 tablet 01/19/18 Unknown Rx Ibuprofen [Motrin] 600 mg PO Q8H PRN #30 tablet 01/19/18 Unknown Rx Prednisone [predniSONE 10 mg 10 mg PO .TAPER #1 tab.ds.pk 01/19/18 Unknown Rx (6-Day Pack, 21 Tabs)] Methocarbamol [Robaxin-750] 750 mg PO Q12H PRN #12 tablet 04/06/18 Unknown Rx Tramadol HCl [Ultram] 50 mg PO Q6H PRN #12 tablet 07/17/18 Unknown Rx Cyclobenzaprine [Flexeril] 10 mg PO TID PRN #30 tablet 09/09/18 Unknown Rx Menthol/Camphor [[place] 1 applicatio TP QID PRN #1 tube 09/09/18 Unknown Rx Ointment] Naproxen 500 mg PO BID PRN #30 tablet 09/09/18 Unknown Rx Cyclobenzaprine [Flexeril] 10 mg PO QHS PRN #10 tablet 01/15/19 Unknown Rx Naproxen [Naprosyn TAB] 500 mg PO Q12H PRN #20 tablet 01/15/19 Unknown Rx Meclizine [Antivert] 25 mg PO TID PRN #10 tablet 08/24/19 Unknown Rx Naproxen 500 mg PO Q12H PRN #10 tablet 08/24/19 Unknown Rx Allergies Allergy/AdvReac Type Severity Reaction Status Date / Time No Known Allergies Allergy Verified 08/24/19 14:04 ED Review of Systems Comment: All other systems reviewed and negative ED Past Medical Hx - Past Medical History Previous Medical History?: Yes Hx Hypertension: Yes Hx Arthritis: Yes Additional medical history: CHRONIC LEFT SHOULDER PAIN. CHRONIC BACK PAIN - Surgical History Past Surgical History?: Yes Additional Surgical History: left shoulder repair - Social History Smoking Status: Current Every Day Smoker Substance Use Type: Alcohol, Cocaine, Marijuana - Medications Home Medications: Home Medications Medication Instructions Recorded Confirmed Last Taken Type Meclizine [Antivert] 25 mg PO Q8H PRN #30 tablet 07/20/17 Unknown Rx Cyclobenzaprine [Flexeril] 10 mg PO BID PRN #14 tablet 01/19/18 Unknown Rx Ibuprofen [Motrin] 600 mg PO Q8H PRN #30 tablet 01/19/18 Unknown Rx Prednisone [predniSONE 10 mg 10 mg PO .TAPER #1 tab.ds.pk 01/19/18 Unknown Rx (6-Day Pack, 21 Tabs)] Methocarbamol [Robaxin-750] 750 mg PO Q12H PRN #12 tablet 04/06/18 Unknown Rx Tramadol HCl [Ultram] 50 mg PO Q6H PRN #12 tablet 07/17/18 Unknown Rx Cyclobenzaprine [Flexeril] 10 mg PO TID PRN #30 tablet 09/09/18 Unknown Rx Menthol/Camphor [[place] 1 applicatio TP QID PRN #1 tube 09/09/18 Unknown Rx Ointment] Naproxen 500 mg PO BID PRN #30 tablet 09/09/18 Unknown Rx Cyclobenzaprine [Flexeril] 10 mg PO QHS PRN #10 tablet 01/15/19 Unknown Rx Naproxen [Naprosyn TAB] 500 mg PO Q12H PRN #20 tablet 01/15/19 Unknown Rx Meclizine [Antivert] 25 mg PO TID PRN #10 tablet 08/24/19 Unknown Rx Naproxen 500 mg PO Q12H PRN #10 tablet 08/24/19 Unknown Rx ED Physical Exam - General Limitations: Other General appearance: alert, in no apparent distress, lethargic - Head Head exam: Present: atraumatic, normocephalic - Eye Eye exam: Present: normal appearance, PERRL, EOMI - ENT ENT exam: Present: mucous membranes moist - Neck Neck exam: Present: normal inspection - Respiratory Respiratory exam: Present: normal lung sounds bilaterally. Absent: respiratory distress, wheezes, rales, rhonchi - Cardiovascular Cardiovascular Exam: Present: regular rate, normal rhythm, normal heart sounds. Absent: systolic murmur, diastolic murmur, rubs, gallop - GI/Abdominal GI/Abdominal exam: Present: soft, normal bowel sounds. Absent: distended, tenderness, guarding, rebound - Rectal Rectal exam: Present: deferred - Extremities Exam Extremities exam: Present: normal inspection - Back Exam Back exam: Present: normal inspection - Neurological Exam Neurological exam: Present: alert, oriented X3 - Psychiatric Psychiatric exam: Present: normal affect, normal mood - Skin Skin exam: Present: warm, dry, intact, normal color. Absent: rash ED Course - Reevaluation(s) Reevaluation #1: 11/18/19 04:46 Still waiting for urine drug screen at this time. ED Medical Decision Making - Lab Data Result diagrams: 11/18/19 00:52 11/18/19 00:52 Lab Results 11/18/19 11/18/19 11/18/19 Range/Units 00:52 00:52 00:52 WBC (4.5-11.0) K/mm3 RBC (3.65-5.03) M/mm3 Hgb (11.8-15.2) gm/dl Hct (35.5-45.6) % MCV (84-94) fl MCH (28-32) pg MCHC (32-34) % RDW (13.2-15.2) % Plt Count (140-440) K/mm3 Lymph % (Auto) (13.4-35.0) % [place] % (Auto) (0.0-7.3) % Eos % (Auto) (0.0-4.3) % Baso % (Auto) (0.0-1.8) % Lymph # (1.2-5.4) K/mm3 [place] # (0.0-0.8) K/mm3 Eos # (0.0-0.4) K/mm3 Baso # (0.0-0.1) K/mm3 Seg Neutrophils % (40.0-70.0) % Seg Neutrophils # (1.8-7.7) K/mm3 Sodium 138 (137-145) mmol/L Potassium 4.8 (3.6-5.0) mmol/L Chloride 103.7 (98-107) mmol/L Carbon Dioxide 25 (22-30) mmol/L Anion Gap 14 mmol/L BUN 17 (9-20) mg/dL Creatinine 1.4 (0.8-1.5) mg/dL Estimated GFR > 60 ml/min BUN/Creatinine Ratio 12 % Glucose 124 H (75-100) mg/dL Calcium 8.8 (8.4-10.2) mg/dL Salicylates < 0.3 L (2.8-20.0) mg/dL Acetaminophen < 5.0 L (10.0-30.0) ug/mL Plasma/Serum Alcohol (0-0.07) % 11/18/19 11/18/19 Range/Units 00:52 00:52 WBC 11.2 H (4.5-11.0) K/mm3 RBC 4.32 (3.65-5.03) M/mm3 Hgb 13.4 (11.8-15.2) gm/dl Hct 39.5 (35.5-45.6) % MCV 91 (84-94) fl MCH 31 (28-32) pg MCHC 34 (32-34) % RDW 14.4 (13.2-15.2) % Plt Count 313 (140-440) K/mm3 Lymph % (Auto) 15.9 (13.4-35.0) % [place] % (Auto) 5.6 (0.0-7.3) % Eos % (Auto) 0.2 (0.0-4.3) % Baso % (Auto) 0.4 (0.0-1.8) % Lymph # 1.8 (1.2-5.4) K/mm3 [place] # 0.6 (0.0-0.8) K/mm3 Eos # 0.0 (0.0-0.4) K/mm3 Baso # 0.0 (0.0-0.1) K/mm3 Seg Neutrophils % 77.9 H (40.0-70.0) % Seg Neutrophils # 8.7 H (1.8-7.7) K/mm3 Sodium (137-145) mmol/L Potassium (3.6-5.0) mmol/L Chloride (98-107) mmol/L Carbon Dioxide (22-30) mmol/L Anion Gap mmol/L BUN (9-20) mg/dL Creatinine (0.8-1.5) mg/dL Estimated GFR ml/min BUN/Creatinine Ratio % Glucose (75-100) mg/dL Calcium (8.4-10.2) mg/dL Salicylates (2.8-20.0) mg/dL Acetaminophen (10.0-30.0) ug/mL Plasma/Serum Alcohol < 0.01 (0-0.07) % - Medical Decision Making Patient is a 58-year-old -[place] male who is presenting with fatigue after cocaine binge. Patient vital signs are within normal limits. Patient was hydrated. Patient is awaiting evaluation by our mental health assessment team. Patient is medically cleared at this time. ED Disposition Clinical Impression: History of cocaine use, Chronic back pain Disposition: DC- TO HOME OR SELFCARE Condition: Stable Additional Instructions: Rest, avoid heavy lifting, and avoid strenuous physical activities. Patient may take Tylenol, 650 mg by mouth, [id number], every 4-6 hours, as needed for pain, alternating with ibuprofen, 400 mg by mouth with food, every 6 hours, as needed for pain. Follow-up with outpatient resources that were provided to the patient: Outpatient [facility] Behavior[facility] Health Resources: [facility]) [address] [place] [id number] / Wednesday thru Wednesday - 8am - 5pm CRISIS RESOURCES [place] Crisis Line: Suicide Prevention Line: Crisis Text Line: Text START to [phone] Emergency: 911 Initialized on 11/18/19 10:39 - END OF NOTE Follow-up with a primary care doctor within the next month. Please do not drive or operate motor vehicles until cleared to do so by a primary care doctor. Recommend that patient avoid consumption of cocaine, alcohol, and recreational drugs. Consumption of the aforementioned may cause addiction, disability, , paralysis, loss of quality of life. Please return to the emergency room right away with new pain, worsening pain, migration of pain, recurrent suicidality, projectile vomiting, change in mental status, confusion, inability to tolerate liquid feeds, or new, worsened or different symptoms not present on the initial emergency room evaluation. Referrals: SUSY HOWARD MD [Staff Physician] - 3-5 Days [facility] [Provider Group] - 3-5 Days <LINA KASPER - Last Filed: 11/18/19 10:57> ED Review of Systems ROS: Stated complaint: DRUG/ALCOHOL Other details as noted in HPI ED Course Vital Signs 11/18/19 11/18/19 11/18/19 03:00 04:00 05:31 Pulse Rate 77 77 79 Respiratory 16 16 15 Rate Blood Pressure 164/98 148/79 127/86 [Left] O2 Sat by Pulse 100 96 97 Oximetry 11/18/19 11/18/19 06:00 07:15 Pulse Rate 77 78 Respiratory 15 17 Rate Blood Pressure 141/86 120/75 [Left] O2 Sat by Pulse 96 96 Oximetry - Reevaluation(s) Reevaluation #2: 11/18/19 10:49 Patient is currently awake, alert, oriented, and denies physical pain with the e xception of chronic back pain. He is not homicidal or suicidal. He exhibits decision-making capacity. He states he will have his sister or his mother come by and pick him up. He was medically cleared during the preceding shift. Psychiatry team has evaluated the patient, he does not meet criteria for inpatient hold or 1013 hold, and he can follow-up as an outpatient. ED Medical Decision Making - Lab Data Result diagrams: 11/18/19 00:52 11/18/19 00:52 Critical care attestation.: If time is entered above; I have spent that time in minutes in the direct care of this critically ill patient, excluding procedure time. ED Disposition Is pt being admited?: No Does the pt Need Aspirin: No
[2019-11-18 05:16] LABS: Bacteria,Urine 1+ /HPF (Negative); Bilirubin,Urine NEG (Negative); Blood,Urine SM (Negative); Color,Urine Yellow (Yellow); Hyaline Casts,Urine 6 /LPF; Mucus,Urine FEW /HPF; Protein,Urine <15 mg/dL mg/dL (Negative); Urobilinogen,Urine < 2.0 mg/dL (<2.0)
[2019-11-18 05:23] LABS: Amphetamine Screen,Urine PRESUMPTIVE NEGATIVE; Benzodiazepines Screen,Urine PRESUMPTIVE NEGATIVE; Methadone Screen,Urine PRESUMPTIVE NEGATIVE; Opiate Screen,Urine PRESUMPTIVE NEGATIVE
[2019-11-18 05:38] LABS: Cannabinoid Screen,Urine PRESUMPTIVE POSITIVE; Cocaine Screen,Urine PRESUMPTIVE POSITIVE
[2019-11-18 10:53] VITALS: BP 144/88
== END 2019-11-18 11:42 | disposition home or self-care (01) ==
LOC: ED 00:36
DX: M54.9 Dorsalgia, unspecified (principal); G89.29 Other chronic pain; F14.10 Cocaine abuse, uncomplicated; I10 Essential (primary) hypertension; M19.90 Unspecified osteoarthritis, unspecified site; F17.200 Nicotine dependence, unspecified, uncomplicated; Z79.899 Other long term (current) drug therapy; F12.10 Cannabis abuse, uncomplicated
CPT/HCPCS: 36415; 80048; 80307; 81001; 85025; 99284; J7030; 80320; G0480

== ENCOUNTER 2021-04-03 23:54 | Emergency (ER) | payer MEDICARE ==
[2021-04-04 00:26] VITALS: BP 129/88
--- NOTE | 2021-04-04 01:58 | Emergency Department Report ---
ED General Adult HPI - General Chief complaint: Back Pain/Injury Stated complaint: PAIN LOWER BACK Time Seen by Provider: 04/04/21 01:43 Source: patient Mode of arrival: Ambulatory Limitations: No Limitations - History of Present Illness Initial comments: 60-year-old female patient with history of hypertension presents to the emergency department with complaints of an acute exacerbation of chronic neck pain back pain, and left shoulder pain for 1 week. Patient underwent shoulder surgery in 2006. He is currently under the care of a environmental permitting specialist. He has received epidural injections into his neck and he has been to a local urgent care facility for pain control, both within the last week. States he has taken extra strength Tylenol at home with limited relief. There has been no new fall, trauma, or injury. Denies headache, chest pain, shortness of breath, palpitations, paresthesias, numbness, weakness, saddle anesthesia, bladder/bowel dysfunction. Denies all other complaints at this time. - Related Data Previous Rx's Medication Instructions Recorded Last Taken Type Meclizine [Antivert] 25 mg PO Q8H PRN #30 tablet 07/20/17 Unknown Rx Cyclobenzaprine [Flexeril] 10 mg PO BID PRN #14 tablet 01/19/18 Unknown Rx Ibuprofen [Motrin] 600 mg PO Q8H PRN #30 tablet 01/19/18 Unknown Rx Prednisone [predniSONE 10 mg 10 mg PO .TAPER #1 tab.ds.pk 01/19/18 Unknown Rx (6-Day Pack, 21 Tabs)] methocarbamoL [Robaxin-750] 750 mg PO Q12H PRN #12 tablet 04/06/18 Unknown Rx Tramadol HCl [Ultram] 50 mg PO Q6H PRN #12 tablet 07/17/18 Unknown Rx Cyclobenzaprine [Flexeril] 10 mg PO TID PRN #30 tablet 09/09/18 Unknown Rx Menthol/Camphor [[place] Glenvil 1 applicatio TP QID PRN #1 tube 09/09/18 Unknown Rx Ointment] Naproxen 500 mg PO BID PRN #30 tablet 09/09/18 Unknown Rx Cyclobenzaprine [Flexeril] 10 mg PO QHS PRN #10 tablet 01/15/19 Unknown Rx Naproxen [Naprosyn TAB] 500 mg PO Q12H PRN #20 tablet 01/15/19 Unknown Rx Meclizine [Antivert] 25 mg PO TID PRN #10 tablet 08/24/19 Unknown Rx Naproxen 500 mg PO Q12H PRN #10 tablet 08/24/19 Unknown Rx Lidocaine [Lidoderm] 1 each TP BID #20 adh..patch 04/04/21 Unknown Rx Naproxen 250 mg PO BID #20 tablet 04/04/21 Unknown Rx Allergies Allergy/AdvReac Type Severity Reaction Status Date / Time No Known Allergies Allergy Verified 08/24/19 14:04 ED Review of Systems ROS: Stated complaint: PAIN LOWER BACK Other details as noted in HPI Other: CARDIOVASCULAR: Negative for chest pain. PULMONARY: Negative for dyspnea. GASTROINTESTINAL: Negative for abdominal pain. MUSCULOSKELETAL: Positive for neck pain, back pain, shoulder pain. NEUROLOGICAL: Negative for headache. INTEGUMENTARY: Negative for ecchymosis. ED Past Medical Hx - Past Medical History Previous Medical History?: Yes Hx Hypertension: Yes Hx Arthritis: Yes Additional medical history: CHRONIC LEFT SHOULDER PAIN. CHRONIC BACK PAIN - Surgical History Past Surgical History?: Yes Additional Surgical History: left shoulder repair - Social History Smoking Status: Current Every Day Smoker Substance Use Type: Alcohol, Cocaine, Marijuana - Medications Home Medications: Home Medications Medication Instructions Recorded Confirmed Last Taken Type Meclizine [Antivert] 25 mg PO Q8H PRN #30 tablet 07/20/17 Unknown Rx Cyclobenzaprine [Flexeril] 10 mg PO BID PRN #14 tablet 01/19/18 Unknown Rx Ibuprofen [Motrin] 600 mg PO Q8H PRN #30 tablet 01/19/18 Unknown Rx Prednisone [predniSONE 10 mg 10 mg PO .TAPER #1 tab.ds.pk 01/19/18 Unknown Rx (6-Day Pack, 21 Tabs)] methocarbamoL [Robaxin-750] 750 mg PO Q12H PRN #12 tablet 04/06/18 Unknown Rx Tramadol HCl [Ultram] 50 mg PO Q6H PRN #12 tablet 07/17/18 Unknown Rx Cyclobenzaprine [Flexeril] 10 mg PO TID PRN #30 tablet 09/09/18 Unknown Rx Menthol/Camphor [[place] Glenvil 1 applicatio TP QID PRN #1 tube 09/09/18 Unknown Rx Ointment] Naproxen 500 mg PO BID PRN #30 tablet 09/09/18 Unknown Rx Cyclobenzaprine [Flexeril] 10 mg PO QHS PRN #10 tablet 01/15/19 Unknown Rx Naproxen [Naprosyn TAB] 500 mg PO Q12H PRN #20 tablet 01/15/19 Unknown Rx Meclizine [Antivert] 25 mg PO TID PRN #10 tablet 08/24/19 Unknown Rx Naproxen 500 mg PO Q12H PRN #10 tablet 08/24/19 Unknown Rx Lidocaine [Lidoderm] 1 each TP BID #20 adh..patch 04/04/21 Unknown Rx Naproxen 250 mg PO BID #20 tablet 04/04/21 Unknown Rx ED Physical Exam - General Limitations: No Limitations - Other Other exam information: General: Awake, appropriately interactive, no acute distress. Neck: Supple. Cardiovascular: Normal peripheral perfusion. Pulmonary: No respiratory distress. Patient is speaking normally without use of accessory muscles. Skin: No apparent rashes or lesions. Neurological: No facial asymmetry. Speech is clear. Follows commands. Patient is alert and oriented. Musculoskeletal: Diffuse left shoulder tenderness without obvious deformity or dislocation. Diffuse bilateral paraspinal cervical, thoracic, and lumbar tenderness. No step-offs. No saddle anesthesia. Ambulatory without assistance. Psych: Cooperative. Appropriate mood and affect. ED Course Vital Signs 04/04/21 00:25 Temperature 98.2 F Pulse Rate 87 Respiratory 16 Rate Blood Pressure 129/88 [Right] O2 Sat by Pulse 99 Oximetry ED Medical Decision Making - Medical Decision Making Differential diagnosis including but not limited to: sprain, strain, fracture, contusion, dislocation The patients presentation is consistent with an acute exacerbation of chronic musculoskeletal pain. There is no clinical evidence of emergent pathology to warrant further testing, continued ED treatment, admission, or surgical evaluation at this point. It has been explained to the patient that further diagnostic testing on an emergent basis is not indicated and the most appropriate course of action is outpatient follow-up. The patient has been advised to seek consultation from a commercial painter for definitive care and follow up with his environmental permitting specialist to help coordinate pain control. Patient is aware of specific signs/symptoms that should prompt immediate return to the ED. Instructions were explained in detail to the patient in addition to giving written discharge information and appropriate referrals. Patient expressed understanding and was given the opportunity to ask questions, all of which were satisfactorily answered prior to discharge home. BILLING/CODING: This patient encounter does not represent a certified medical emergency. Critical care attestation.: If time is entered above; I have spent that time in minutes in the direct care of this critically ill patient, excluding procedure time. ED Disposition Clinical Impression: Chronic neck pain, Chronic left shoulder pain Chronic back pain Qualifiers: Back pain location: back pain in unspecified location Back pain laterality: bilateral Qualified Code(s): M54.9 - Dorsalgia, unspecified; G89.29 - Other chronic pain Disposition: HOME / SELF CARE / HOMELESS Is pt being admited?: No Does the pt Need Aspirin: No Condition: Stable Instructions: Chronic Back Pain, [id number] Additional Instructions: Take Tylenol every 4 hours as needed for pain. Take Naprosyn twice daily with food as needed for pain. Apply Lidoderm patches to affected area as needed for pain. Apply heat to affected area as needed for pain. Gradually advance physical activity slowly as tolerated. Follow-up with your environmental permitting specialist this week. Call tomorrow to schedule an appointment. Return to the emergency department immediately for new or worsening symptoms. Prescriptions: Lidocaine [Lidoderm] 1 each TP BID #20 adh..patch Naproxen 250 mg PO BID #20 tablet Referrals: [facility] [Provider Group] - 3-5 Days Time of Disposition: 01:59
== END 2021-04-04 02:59 | disposition home or self-care (01) ==
LOC: ED 23:54
DX: M54.2 Cervicalgia (principal); G89.29 Other chronic pain; M25.512 Pain in left shoulder; I10 Essential (primary) hypertension; F17.200 Nicotine dependence, unspecified, uncomplicated; F10.20 Alcohol dependence, uncomplicated; F12.90 Cannabis use, unspecified, uncomplicated
CPT/HCPCS: 99281